=== PATIENT | male | born 1930 | race Caucasian/White ===

== ENCOUNTER 2017-01-04 09:59 | Inpatient (IN) ==
[2017-01-04] MEDS ORDERED: 0.9 % SODIUM CHLORIDE 1,000 ML IV ONE ×2 (10:04→11:55)
--- NOTE | 2017-01-04 10:06 | Emergency Department Note ---
SOB HPI - General Chief Complaint: Shortness of Breath/Dyspnea Stated Complaint: possible aspiration Time Seen by Provider: 01/04/17 10:03 Mode of arrival: wheelchair - History of Present Illness This patient lives at [facility] and has had previous strokes. However he is baseline has been a level of responsiveness and talking in being able to go out to lunch with family. Her last several days however he has become less responsive. Did have UTI last week and has been treated with Macrobid. Family got back from [place] and found him to be much worse than previously. He does have a DNR and is essentially comfort care with permission for IV fluid antibiotics. Also permission for her testing to make diagnoses. MD Complaint: shortness of breath Onset (ago): day(s) Severity: mild Consistency/Duration: constant Improves with: oxygen, bronchodilators Worsens with: lying flat Known history of: aspiration pneumonia - Related Data Home Medications Medication Instructions Recorded Confirmed Allopurinol [Zyloprim] 300 mg PO BID 03/16/15 01/28/16 Pravastatin [Pravachol] 80 mg PO HS 03/16/15 01/28/16 Vitamin B Complex w/Folic Acid PO 06/10/15 01/28/16 cholecalciferol (vitamin D3) 5,000 5,000 unit PO QDAY cap 06/10/15 01/28/16 unit capsule acetaminophen 325 mg tablet 325 mg PO Q4H PRN tab 01/28/16 01/28/16 artificial tears OPHTHALMIC 01/28/16 01/28/16 multivitamin with minerals capsule 1 tab-cap PO QDAY cap 01/28/16 01/28/16 Previous Rx's Medication Instructions Recorded wheelchair - lightweight, manual #1 each 03/21/15 allopurinol 300 mg tablet 300 mg PO BID #60 tab 11/01/15 carbidopa 25 mg-levodopa 100 mg 1 tab PO Q8H #90 tab 11/01/15 tablet clopidogrel 75 mg tablet 75 mg PO QDAY #30 tab 11/01/15 fenofibrate 54 mg tablet 54 mg PO QDAY #30 tab 11/01/15 galantamine ER 16 mg 24 hr 16 mg PO DAILY #30 cap 11/01/15 capsule,extended release insulin glargine 100 unit/mL (3 20 unit SUB-Q DAILY #15 ml 04/22/16 mL) subcutaneous pen pantoprazole 40 mg tablet,delayed 40 mg PO QDAY #30 tab 11/01/15 release prednisone 5 mg tablet 5 mg PO QAM #30 tab 11/01/15 venlafaxine ER 150 mg 150 mg PO DAILY #30 tab 11/01/15 tablet,extended release 24 hr blood sugar diagnostic strips See Dose Instructions .ROUTE 11/05/15 .MEDSUPPLY #100 each ketoconazole 2 % topical cream 1 applic TOPICAL BID PRN #60 g 01/28/16 pravastatin 80 mg tablet 80 mg PO HS #30 tab 01/28/16 amoxicillin 875 mg-potassium 1 tab PO BID #20 tab 02/04/16 clavulanate 125 mg tablet BD Pen needle 31G x 09/24 #150 each 09/15/16 insulin aspart 100 unit/mL See Label Instructions SUB-Q 10/20/16 subcutaneous solution .COMPLEX #15 ml tiotropium bromide 18 mcg capsule 18 mcg INHALATION .COMPLEX #30 puff 11/03/16 with inhalation device amlodipine 2.5 mg tablet 2.5 mg PO QDAY #30 tab 12/08/16 Allergies Allergy/AdvReac Type Severity Reaction Status Date / Time ciprofloxacin [From CIPRO] Allergy Unknown UNKNOWN Verified 01/28/16 15:52 lisinopril [From PRINIVIL] Allergy Unknown COUGH Verified 01/28/16 15:52 colchicine [COLCHICINE] AdvReac Mild NAUSEA Verified 01/28/16 15:52 Review of Systems Limitations: ROS unobtainable due to patients medical condition Past Medical History - Past Medical History [facility] Narrative: Medical History (Last Updated 11/26/16 @ 14:21 by [employer] [place]) Abrasion of occiput (Acute) Diabetes (Acute) Bronchitis (Acute) Pancreatic mass (Acute) Rosacea keratitis (Chronic) Visual field defect (Chronic) Visual disturbance (Chronic) Urinary urgency (Chronic) Urinary frequency (Chronic) Bladder trabeculation (Chronic) Sleep apnea (Chronic) Pterygium (Chronic) Pseudophakia (Chronic) Pneumonia (Chronic 06/13/13) Parkinsonism (Chronic) Nocturia (Chronic) 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 Sjogren's (Chronic) Ischemic heart disease (Chronic) Hypertension, essential (Chronic) Hypercholesterolemia (Chronic) INPH (idiopathic normal pressure hydrocephalus) (Chronic) Gout (Chronic) DMII (diabetes mellitus, type 2) (Chronic) Dermatitis (Chronic) Depressive disorder (Chronic) DDD (degenerative disc disease) (Chronic) DVT (deep venous thrombosis) (Chronic) CAD (coronary artery disease) (Chronic) COPD (chronic obstructive pulmonary disease) (Chronic) Cataract (Chronic 02/11/12) Benign prostatic hypertrophy with lower urinary tract symptoms (LUTS) (Chronic) Gresham's cyst (Chronic) Atrial fibrillation (Chronic) UTI (urinary tract infection) (Acute) Past Surgical History (Last Updated 11/26/16 @ 14:21 by [employer] [place]) Hx of tonsillectomy (Chronic) Status post surgery (Chronic 08/29/13) H/O ventricular shunt (Chronic) H/O left knee surgery (Chronic) Hx of cataract surgery (Chronic) S/P CABG x 4 (Chronic) H/O angioplasty (Chronic) Family History Father Malignant neoplasm of prostate Medical history: Reports: arthritis (prostate problems, Parkinson's, gout), atrial fibrillation, COPD, coronary artery disease, DVT, dementia, diabetes, hyperlipidemia, hypertension Surgical history ED: Reports: angioplasty/stent, cataract, coronary bypass (CABG ), other (tonsils, ventricular shunt) - Social History Alcohol use: Reports: None Drug use: Reports: none Physical Exam - General Limitations: altered mental status General appearance: alert, in no apparent distress - Head Head exam: atraumatic, normocephalic - Eye Eye exam: Present: normal appearance - ENT ENT exam: mucous membranes dry - Neck Neck exam: Present: normal inspection - Chest Chest inspection: Present: normal inspection - Respiratory Respiratory exam: Present: normal lung sounds bilaterally - Cardiovascular Cardiovascular exam: Present: regular rate, normal rhythm, normal heart sounds - Abdominal Exam Abdominal exam: Present: soft. Absent: distention, tenderness - Skin Skin exam: Present: warm, dry, intact Course Vital Signs Temperature 98.1 F 01/04/17 09:59 Pulse Rate 125 H 01/04/17 09:59 Respiratory Rate 38 H 01/04/17 09:59 Pulse Oximetry (%) 94 01/04/17 09:59 Temperature 98.1 F 01/04/17 09:59 Pulse Rate 103 H 01/04/17 11:56 Respiratory Rate 27 H 01/04/17 11:56 Blood Pressure 141/91 01/04/17 11:56 Pulse Oximetry (%) 98 01/04/17 11:56 Shortness of Breath/Dyspnea - [facility] Narrative Medical decision making narrative: This patient is worrisome for sepsis but source is not obvious. Chest x-ray was read as normal and urine does not look very remarkable this week although he had a enterococcus infection in the urine last week and was treated with Macrobid for which it was sensitive. CT scan does show some increased hydrocephalus with questionable [employer] shunt function. I discussed the case with the neurosurgeon Dr. Johnston who recommends treatment of sepsis before any attempt to revise his shunt. He will be admitted to the hospital by Dr. Art our hospitalist. - Lab Data Lab results reviewed: Yes I reviewed the patient's lab results. Result diagrams: 01/04/17 10:23 01/04/17 10:23 Lab Results 01/04/17 01/04/17 01/04/17 Range/Units 10:04 10:23 10:23 WBC 22.6 H (4.5-11.0) K/mcL RBC 5.00 (4.50-5.90) M/mcL Hgb 15.2 (13.5-16.5) g/dL Hct 47.4 (41.0-55.0) % MCV 94.7 (80.0-100.0) fL MCH 30.4 (26.0-34.0) pg MCHC 32.1 (31.0-36.0) g/dL RDW 16.4 H (11.5-14.5) % Plt Count 274 (140-440) K/mcL MPV 10.9 H (7.4-10.4) fL Gran % 85.6 H (38.0-78.0) % Lymph % (Auto) 6.6 L (15.5-49.0) % Piute % (Auto) 4.8 (1.0-12.0) % Eos % (Auto) 3.0 (0.0-7.0) % Baso % (Auto) 0 (0.0-2.0) % Gran # 19.3 H (1.8-8.0) K/mcL Lymph # (Auto) 1.5 (1.5-4.8) K/mcL Piute # (Auto) 1.1 H (0.1-0.9) K/mcL Eos # (Auto) 0.7 (0.0-0.7) K/mcL Baso # (Auto) 0 (0.0-0.3) K/mcL VBG Lactic Acid 5.2 H* (0.5-2.2) mmol/L Sodium 159 H (133-145) mmol/L Potassium 4.1 (3.3-5.1) mmol/L Chloride 114 H (96-108) mmol/L Carbon Dioxide 19 L (22-30) mmol/L Anion Gap 26.0 H (8-16) BUN 92 H (8-23) mg/dl Creatinine 2.9 H (0.7-1.2) mg/dl GFR Calculation 19 Glucose 248 H (70-105) mg/dL Calcium 10.0 (8.6-10.4) mg/dl Total Bilirubin 1.0 (0.0-1.0) mg/dL AST 65 H (0-37) U/l ALT 22 (0-40) U/l Alkaline Phosphatase 161 H (39-117) U/L Total Protein 8.4 (5.9-8.4) gm/dL Albumin 3.5 (3.2-5.2) gm/dL Globulin 4.9 H (2.2-3.7) gm/dL Albumin/Globulin Ratio 0.7 L (1.0-2.3) - Radiology Data Radiology results reviewed: Yes I reviewed the patient's radiology results. Disposition Clinical Impression: Sepsis Disposition: Xfer As Inpt ([facility]) Condition: Fair Referrals: Shar Rosas MD [Primary Care Provider] - Time of Disposition: 12:04
--- NOTE | 2017-01-04 10:38 | XRay Report ---
CLINICAL INFORMATION: Shortness of breath COMPARISON: 08/30/2015 FINDINGS: Mild cardiomegaly is unchanged. Mediastinum and pulmonary vessels are normal. Sternotomy changes noted. GIZZARD PULLER shunt catheter overlies the right neck, chest and right upper outer quadrant of the abdomen - no evidence of shunt breakage. The lungs are clear. No effusions. IMPRESSION: No acute disease - stable Interpreted and Authenticated by: Mariusz Hameed 01/04/17
[2017-01-04 11:02] LABS: Basophils # (Auto) 0 K/mcL (0.0-0.3); Basophils % (Auto) 0 % (0.0-2.0); Eosinophils # (Auto) 0.7 K/mcL (0.0-0.7); Granulocytes % (Auto) 85.6 % (38.0-78.0); Lymphocytes # (Auto) 1.5 K/mcL (1.5-4.8); Lymphocytes % (Auto) 6.6 % (15.5-49.0); Mean Cell Volume 94.7 fL (80.0-100.0); Mean Corpuscular HGB Conc 32.1 g/dL (31.0-36.0); Mean Corpuscular Hemoglobin 30.4 pg (26.0-34.0); Monocytes # (Auto) 1.1 K/mcL (0.1-0.9); Monocytes % (Auto) 4.8 % (1.0-12.0); Platelet Count 274 K/mcL (140-440); Red Cell Distribution Width 16.4 % (11.5-14.5)
--- NOTE | 2017-01-04 11:03 | Cat Scan Report ---
CLINICAL INFORMATION: Decreased level consciousness COMPARISON: None. TECHNIQUE: 2.5 mm helical slices were obtained in the skull base to vertex. Following reconstruction, axial reformatted images were reviewed at bone and parenchymal windows. FINDINGS: The [employer] shunt catheter is in stable position entering the atrium of the right lateral ventricle with the tip in the posterior body right lateral ventricle. The ventricles have increased in size considerably since the 12/10/[address] and are now markedly enlarged. Sulci fissures and cisterns are only moderately enlarged compatible underlying moderate atrophy. There are no extra-axial fluid collections or masses appreciated. Moderate size region of encephalomalacia in the deep white matter of the right parietal lobe, near the shunt tract, has increased in size. There is no intracerebral hemorrhage, mass effect or edema. There is chronic ischemic changes in the deep cerebral white matter. 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 IMPRESSION: 1. Moderate recurrent hydrocephalus. Suspect decreased function of the shunt catheter 2. Moderate underlying atrophy. 3. Patchy chronic ischemic changes in the cerebral white matter. Moderate size region of encephalomalacia in the right parietal lobe, near vertex, has increased from the 2015 comparison study. 4. No intracerebral hemorrhage or other acute finding 5. 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 Please correlate with speculum exam - this may affect conductive hearing Interpreted and Authenticated by: Mariusz Hameed 01/04/17
[2017-01-04 11:16] LABS: ALT/SGPT 22 U/l (0-40); Albumin 3.5 gm/dL (3.2-5.2); Albumin/Globulin Ratio 0.7 (1.0-2.3); Alkaline Phosphatase 161 U/L (39-117); Blood Urea Nitrogen 92 mg/dl (8-23)
[2017-01-04] MEDS ORDERED: LEVOFLOXACIN 500 MG/100 ML BAG IV ONE (11:53)
[2017-01-04] MEDS ORDERED: PIPERACILLIN SODIUM/TAZOBACTAM 3.375 GM in DEXTROSE 5% IN WATER 50 ML IV SCH ×2 (12:00→13:25)
[2017-01-04 12:41] LABS: Appearance,Urine CLOUDY; Bacteria,Urine 0 /hpf (0); Bilirubin,Urine NEG (NEG); Color,Urine YELLOW; Glucose,Urine (UA) NEGATIVE (NEG); Leukocyte Esterase,Urine 25 /uL (NEG); Mucus,Urine MOD /hpf (0); Nitrate,Urine NEG (NEG); Protein,Urine 30 mg/dL (NEG); Specific Gravity,Urine 1.017 (1.000-1.035); Urine Amorphous Crystals MOD /hpf (0); Urine Blood 0.03 mg/dL (<0.03); Urine Hyaline Cast 63 /lpf (0-2); Urine RBC 3 /hpf (0-1); Urine Squamous Epithelial Cell 1 /hpf (0-4); Urine WBC 8 /hpf (0-4)
--- NOTE | 2017-01-04 12:52 | Internal Med History&Physical ---
Medical - H&P: HPI Patient information: Note initiated : 01/04/17 at 12:49 pm Patient: Angel Lal 86 y/o M admitted on for possible aspiration. History of present illness: Mr. Lal is a 86 year old Man brought to the emergency room by his family for declining in level of responsiveness. the patient is awake, but is nonverbal and therefore unable to answer questions. He is able to follow some simple commands, such as leaning forwardor taking a deep breath. the history is mostly supplied by the patient's 3 children, one of whom is his POA. They report that the patient at baseline has dementia and is very forgetful. However he can normally walk and talk, and they often will take him out to lunch where he will order food, and often talk about eventsfrom long ago. His POA went on vacation last week, and when he returned home about 6 days ago, his father had suddenly declined. He noted he was much less responsive and mostly nonverbal. The staff at his nursing hometold him they had sent him to see his doctor, and that the patient was diagnosed with a UTI, which was treated with Macrobid. The staff thought he was getting a little better, though mental status was waxing and waning of it. His family feels that he's had significantly decreased oral intake over the last week. They say at baseline, his memory is very unreliable. However, none of his caregiversfeel that he has had fever or chills. He has not reported headaches, sore throat or cough chest pain or shortness of breath, abdominal pain. To their knowledge, he has not had nausea or vomiting, diarrhea or constipation, or dysuria. eR evaluation today, shows probable sepsis, with markedly leukocytosis, hypernatremia, acute renal failure, elevated lactic acid and pro-calcitonin, as well as his mental status changes. the patient has a DNR CODE STATUS, but his family would like most noninvasive measures attempted to see if he will turn around. They are agreeable to IV antibiotics and fluids, but not to chest compressions or intubation. medical History Abrasion of occiput (Acute) Bronchitis (Acute) Diabetes (Acute) Pancreatic mass (Acute) UTI (urinary tract infection) (Acute) Atrial fibrillation (Chronic) Gresham's cyst (Chronic) Left knee- recorded 07/10/07 Benign prostatic hypertrophy with lower urinary tract symptoms (LUTS) (Chronic) Bladder trabeculation (Chronic) CAD (coronary artery disease) (Chronic) COPD (chronic obstructive pulmonary disease) (Chronic) Cataract (Chronic 02/11/12) DDD (degenerative disc disease) (Chronic) DMII (diabetes mellitus, type 2) (Chronic) fixed dose of insulin ac and BID lantus, ongoing monitoring. Today 6.1% Hba1c. 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) 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 Sjogren's (Chronic) Nocturia (Chronic) Parkinsonism (Chronic) continue physical therapy for strength and balance training, gait assistance start speech therapy for swallowing evaluation stay off of repiridone and continue the same sinemet doses Pneumonia (Chronic 06/13/13) Pseudophakia (Chronic) Pterygium (Chronic) Rosacea keratitis (Chronic) Sleep apnea (Chronic) Urinary frequency (Chronic) Urinary urgency (Chronic) Visual disturbance (Chronic) Visual field defect (Chronic) Surgical History H/O angioplasty (Chronic) 1989 ACBP 1996, 2003 H/O left knee surgery (Chronic) Gresham cyst Left knee. Also cartilage and ligament repair, L knee. H/O ventricular shunt (Chronic) ventricular shunt for normal pressure hydrocephalus Hx of cataract surgery (Chronic) 2003 Hx of tonsillectomy (Chronic) Cartilage and ligament repair S/P CABG x 4 (Chronic) Status post surgery (Chronic 08/29/13) [employer] Therapy medications: (recently treated with Macrobid) venlafaxine ER 150 mg daily Spiriva inhaler 1 inhalation daily prednisone 5 mg daily pravastatin 40 mg daily protonix 40 mg daily multivitamin with minerals qd Lantus 20 units daily at 9 AM NovoLog insulin, 20 unitswith breakfast and lunch, 35 units with dinner, and sliding scale for blood glucose is over 250 Galantamine ER 16 mg 16 mg by mouth daily Fenofibrate 54 mg daily [id number] mg aily vitamin D 5000 units daily Sinemet [id number] 1 by mouth every 8 hours Tylenol 325 mg every 4 hours when necessary artificial tears when necessary calcium/magnesium/zinc supplement 1 daily ketoconazole 2% cream apply to rash twice a day when necessary Seroquel 25 mg every 6 hours when necessary agitation B complex 1 daily Allergies/Adverse Reactions ciprofloxacin [From CIPRO] Allergy (Unknown, Verified 01/28/16 15:52) UNKNOWN lisinopril [From PRINIVIL] Allergy (Unknown, Verified 01/28/16 15:52) COUGH colchicine [COLCHICINE] Adverse Reaction (Mild, Verified 01/28/16 15:52) NAUSEA Family History mother at age 102, of unknown causes. Father of prostate cancer. A brother of a heart attack. Social History the patient was a previous smoker, but quit approximately 40 years ago. His family says he used to drink fairly heavily, but quit around 4 years ago. He does not use drugs. He is a . He lives at [facility]. He does have children that live in the area. Medical - H&P: Meds Home Medications Medication Instructions Recorded Confirmed Type Pravastatin [Pravachol] 80 mg PO HS 03/16/15 01/28/16 History wheelchair - lightweight, manual #1 each 03/21/15 01/28/16 Rx Vitamin B Complex w/Folic Acid PO 06/10/15 01/28/16 History cholecalciferol (vitamin D3) 5,000 5,000 unit PO QDAY cap 06/10/15 01/28/16 History unit capsule carbidopa 25 mg-levodopa 100 mg 1 tab PO Q8H #90 tab 11/01/15 01/28/16 Rx tablet clopidogrel 75 mg tablet 75 mg PO QDAY #30 tab 11/01/15 01/28/16 Rx fenofibrate 54 mg tablet 54 mg PO QDAY #30 tab 11/01/15 01/28/16 Rx galantamine ER 16 mg 24 hr 16 mg PO DAILY #30 cap 11/01/15 01/28/16 Rx capsule,extended release insulin glargine 100 unit/mL (3 20 unit SUB-Q DAILY #15 ml 11/01/15 01/28/16 Rx mL) subcutaneous pen pantoprazole 40 mg tablet,delayed 40 mg PO QDAY #30 tab 11/01/15 01/28/16 Rx release prednisone 5 mg tablet 5 mg PO QAM #30 tab 11/01/15 01/28/16 Rx venlafaxine ER 150 mg 150 mg PO DAILY #30 tab 11/01/15 01/28/16 Rx tablet,extended release 24 hr blood sugar diagnostic strips See Dose Instructions .ROUTE 11/05/15 01/28/16 Rx .MEDSUPPLY #100 each acetaminophen 325 mg tablet 325 mg PO Q4H PRN tab 01/28/16 01/28/16 History artificial tears OPHTHALMIC 01/28/16 01/28/16 History ketoconazole 2 % topical cream 1 applic TOPICAL BID PRN #60 g 01/28/16 01/28/16 Rx multivitamin with minerals capsule 1 tab-cap PO QDAY cap 01/28/16 01/28/16 History pravastatin 80 mg tablet 80 mg PO HS #30 tab 01/28/16 01/28/16 Rx BD Pen needle 31G x 09/24 #150 each 09/15/16 Rx insulin aspart 100 unit/mL See Label Instructions SUB-Q 10/20/16 Rx subcutaneous solution .COMPLEX #15 ml tiotropium bromide 18 mcg capsule 18 mcg INHALATION .COMPLEX #30 puff 11/03/16 Rx with inhalation device Allergies Allergy/AdvReac Type Severity Reaction Status Date / Time ciprofloxacin [From CIPRO] Allergy Unknown UNKNOWN Verified 01/28/16 15:52 lisinopril [From PRINIVIL] Allergy Unknown COUGH Verified 01/28/16 15:52 colchicine [COLCHICINE] AdvReac Mild NAUSEA Verified 01/28/16 15:52 Medical - H&P: Exam - Constitutional Vitals: Temp Pulse Resp BP Pulse Ox 98.1 F 103 H 27 H 141/91 98 01/04/17 09:59 01/04/17 11:56 01/04/17 11:56 01/04/17 11:56 01/04/17 11:56 on exam, this is a well-developed well-nourished elderly man who is lying in bed. He has severe psychomotor retardation and consistently holds the left hand up in the air, and seems unable to put it down. He mainly stares straight forward but with encouragement will turn his head to look at me. head: Normocephalic, atraumatic. Eyes: Pupils are equal, round, reactive. Conjunctiva appeared normal and anicteric. He does not cooperate with EOM exam, but these are grossly normal. ears: TMs and canals are clear. Pharynx: Is not well seen. Tongue and mucosa are markedly dry. Neck: Appears supple, as he is able to turn his head, and move it about, without apparent discomfort. There is no obvious lymphadenopathy, JVD, thyromegaly, bruits. Cardiac exam: Shows regular rate and rhythm, with normal S1 and S2, although S2 sounds split. No murmurs, rubs, gallops are noted. lungs: Exam was suboptimal, but I do not hear obvious rales, rhonchi, wheezes. There is no accessory muscle use. Abdomen: Is soft and appears nontender. Bowel sounds are active. Extremities: Show trace edema, but no cyanosis or clubbing. Skin exam: Does show a petechial rash involving his feet and distal legs. neurologic: The patient is awake, but nonverbal. He is able to follow a few simple commands, but for the most partjust stares straight ahead. He has extreme rigidity, and marked cogwheeling of the left upper extremity. cranial nerves are grossly intact. Cerebellar and sensory exams could not be easily tested. Deep tendon reflexes: I had difficulty obtaining any reflexes, although toes appear downgoing to plantar stimulation. Medical - H&P: Reslt - Labs CBC & Chem 7: 01/04/17 10:23 01/04/17 10:23 Labs: Short CBC 01/04/17 Range/Units 10:23 WBC 22.6 H (4.5-11.0) K/mcL Hgb 15.2 (13.5-16.5) g/dL Hct 47.4 (41.0-55.0) % Plt Count 274 (140-440) K/mcL BMP 01/04/17 10:23 Sodium 159 H Potassium 4.1 Chloride 114 H Carbon Dioxide 19 L BUN 92 H Creatinine 2.9 H Glucose 248 H Calcium 10.0 Liver Function 01/04/17 Range/Units 10:23 Total Bilirubin 1.0 (0.0-1.0) mg/dL AST 65 H (0-37) U/l ALT 22 (0-40) U/l Alkaline Phosphatase 161 H (39-117) U/L Albumin 3.5 (3.2-5.2) gm/dL Urine 01/04/17 Range/Units 12:13 Urine Color Yellow Urine Appearance Cloudy Urine pH 5.0 (5.0-9.0) Ur Specific [place] 1.017 (1.000-1.035) Urine Protein 30 A (NEG) mg/dL Urine Glucose (UA) Negative (NEG) mg/dL January 04: CBC differential: Absolute neutrophil count is elevated at 19,000, monocyte count high at 1100. RDW is elevated at 16 next Lactic acid elevated at 5.2 Pro-calcitonin elevated at 3.43 urinalysis shows 30 mg of protein, 5 ketones, 2.0 bilirubin 25 leukocyte esterase, 8 white blood cells, 63 hyalin casts, moderate crystals Head CT of the brain: Moderate recurrent hydrocephalus, with possible shunt obstruction. Chronic ischemic changes. 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 Chest x-ray:Shows mild cardiomegaly sternotomy changes. DIGITAL ARCHIVIST shunt overlies the right neck. No obvious infiltrates. Medical - H&P: A/P (1) Sepsis Current visit: Yes Status: Acute (2) UTI (urinary tract infection) Current visit: Yes Status: Acute (3) Dehydration with hypernatremia Current visit: Yes Status: Acute (4) Acute renal failure (ARF) Current visit: Yes Status: Acute (5) Parkinson disease Current visit: Yes Status: Chronic - Narrative A/P Narrative: #1. Infectious disease.sepsis. This patient presents with signs of sepsis, including altered mental status, leukocytosis, acute renal failure, elevated lactic acid and pro-calcitonin, tachycardia tachypnea. Underlying infectious etiology is not certain. Urinalysis is abnormal but he was just treated for a urinary tract infection with Macrobid, one week ago. I suspect an underlying early pneumonia, that has not shown up on x-ray yet because of dehydration. -admit for IV fluids, IV Zosyn .-blood and urine cultures pending. Obtain sputum for culture, if possible. -Monitored bed. -vasopressors are not currently being required. We would need to verify with family if these are needed, if that is acceptable, given his DNR status. #2.renal. -patient presents with acute renal failure, which looks consistent with severe dehydration. -start IV fluids, and monitor renal function. I reviewed with his family, that this may improve, and it may not. I am sure they would not accept dialysis or other aggressive measures. -patient has severe hypernatremia, which is also likely due to dehydration. monitor as we treat with IV fluids. 33. Neurologic. this patient appears to have an exacerbation of his Parkinson's disease. Unfortunately he cannot take his usual oral Parkinson's meds, but these will be resumed as soon as he is able. -CT scan also suggests worsening of his hydrocephalus, which may indicate a malfunctioning DIGITAL ARCHIVIST shunt. If he recovers to some degree, he could be referred back to neurosurgery, to address this. -history of dementia, and possible depression. Resume Effexor when he is able. resume Seroquel as needed, or useIM Haldol if needed. Nurses are now reporting that he is pulling at his lines, and we will try hand mitts first. -speech therapy evaluation for suspected dysphagia per his family. #4.CODE STATUS: DNR. #5. DVT prophylaxis: Subcutaneous heparin. #6. Cardiac. -History of atrial fibrillation. -History of coronary disease. status post 4 vessel bypass. resume Plavix and pravastatin when able to take by mouth. -History of hypertension. 37. Pulmonary. History of COPD. Use albuterol nebs and oxygen, when necessary. add scheduled DuoNeb's. resume prednisone when able. -Reported history of sleep apnea. #8. Endocrine. -Type 2 diabetes. Cover with sliding scale insulin, while oral intake is poor. nutrition evaluation. #9. GI. -IV Protonix for history of GERD so far, this visit has taken approximately 70 minutes, to review the patient's case with the ER [facility], review his old records, review current test results examined the patient, get a history from his family and review plan of care.
[2017-01-04] MEDS ORDERED: DOCUSATE SODIUM 100 MG CAPSULE PO PRN (13:25)
[2017-01-04] MEDS ORDERED: ACETAMINOPHEN 325 MG TABLET PO PRN (13:25)
[2017-01-04] MEDS ORDERED: DEXTROSE 50% 50 ML VIAL IV PRN (13:25)
[2017-01-04] MEDS ORDERED: ONDANSETRON 4 MG/2 ML VIAL IV PRN (13:25)
[2017-01-04] MEDS ORDERED: NALOXONE HCL 0.4 MG/ML VIAL IV PRN (13:25)
[2017-01-04] MEDS ORDERED: ALBUTEROL SULFATE 2.5 MG/3 ML NEBULIZER NEB PRN (13:25)
[2017-01-04] MEDS ORDERED: MAGNESIUM HYDROXIDE 30 ML ORAL.SUSP PO PRN (13:25)
[2017-01-04] MEDS: IPRATROPIUM/ALBUTEROL 3 ML AMPUL.NEB NEB SCH ×2 (14:09→19:13)
[2017-01-04] MEDS: POTASSIUM CHLORIDE 10 MEQ in 0.45 % SODIUM CHLORIDE 1,000 ML IV SCH ×2 (15:12→21:01)
[2017-01-04 15:23] LABS: Hemoglobin A1C 8.1 % HGB (4.0-6.0)
[2017-01-04] MEDS: INSULIN LISPRO 1 UNIT/0.01 ML UNIT SQ SCH ×2 (17:31→20:30)
[2017-01-04 19:13] LABS: Blood Urea Nitrogen 90 mg/dl (8-23)
[2017-01-04] MEDS: PIPERACILLIN SODIUM/TAZOBACTAM 3.375 GM in DEXTROSE 5% IN WATER 50 ML IV SCH (19:23)
[2017-01-04] MEDS: HEPARIN 5,000 UNIT/ML VIAL SQ SCH (20:34)
[2017-01-05] MEDS: IPRATROPIUM/ALBUTEROL 3 ML AMPUL.NEB NEB SCH ×4 (02:12→18:58)
[2017-01-05] MEDS: PIPERACILLIN SODIUM/TAZOBACTAM 3.375 GM in DEXTROSE 5% IN WATER 50 ML IV SCH ×3 (02:12→12:50)
[2017-01-05] MEDS: POTASSIUM CHLORIDE 10 MEQ in 0.45 % SODIUM CHLORIDE 1,000 ML IV SCH ×3 (03:37→17:16)
[2017-01-05 06:03] LABS: Basophils # (Auto) 0.1 K/mcL (0.0-0.3); Basophils % (Auto) 0.3 % (0.0-2.0); Eosinophils # (Auto) 0.9 K/mcL (0.0-0.7); Eosinophils % (Auto) 4.9 % (0.0-7.0); Granulocytes % (Auto) 83.9 % (38.0-78.0); Lymphocytes # (Auto) 1.2 K/mcL (1.5-4.8); Lymphocytes % (Auto) 6.8 % (15.5-49.0); Mean Cell Volume 95.1 fL (80.0-100.0); Mean Corpuscular Hemoglobin 30.5 pg (26.0-34.0); Monocytes # (Auto) 0.7 K/mcL (0.1-0.9); Monocytes % (Auto) 4.1 % (1.0-12.0); Platelet Count 212 K/mcL (140-440); RBC 3.78 M/mcL (4.50-5.90); Red Cell Distribution Width 16.3 % (11.5-14.5)
[2017-01-05] MEDS: PANTOPRAZOLE 40 MG VIAL IV SCH (07:18)
[2017-01-05] MEDS: INSULIN LISPRO 1 UNIT/0.01 ML UNIT SQ SCH ×4 (07:42→21:02)
[2017-01-05 07:57] LABS: ALT/SGPT 27 U/l (0-40); Albumin 2.5 gm/dL (3.2-5.2); Albumin/Globulin Ratio 0.7 (1.0-2.3); Alkaline Phosphatase 110 U/L (39-117); Bilirubin,Direct 0.2 mg/dL (0.0-0.3); Blood Urea Nitrogen 81 mg/dl (8-23); Gamma Glutamyl Transpeptidase 150 U/L (8-61); Magnesium 2.7 mg/dL (1.6-2.5); Uric Acid 3.8 mg/dL (2.5-8.0)
[2017-01-05] MEDS: HEPARIN 5,000 UNIT/ML VIAL SQ SCH ×2 (08:39→20:54)
--- NOTE | 2017-01-05 08:39 | XRay Report ---
CLINICAL INFORMATION: Sepsis COMPARISON: 01/04/2017 FINDINGS: Sternotomy changes again noted. The heart is mildly enlarged - slightly increased. Mediastinum unremarkable. Pulmonary vessels are mildly distended. A small infiltrate has developed in the right infrahilar region. Small bilateral pleural effusions appreciated. PIPE FITTER AMMONIA shunt catheter overlying the right neck, chest and upper outer quadrant of the abdomen is intact. IMPRESSION: Small infiltrate in right infrahilar region - new. Borderline CHF or volume overload Interpreted and Authenticated by: Mariusz Hameed 01/05/17
--- NOTE | 2017-01-05 10:20 | Internal Med Progress Note ---
Medical - PN: Subj Patient information: Note initiated : 01/05/17 at 10:20 am Patient: Angel Lal 86 y/o M admitted on 01/04/17 for possible aspiration. Interval history: January 04, 2017: History of present illness: Mr. Lal is a 86 year old Man brought to the emergency room by his family for declining in level of responsiveness. the patient is awake, but is nonverbal and therefore unable to answer questions. He is able to follow some simple commands, such as leaning forwardor taking a deep breath. the history is mostly supplied by the patient's 3 children, one of whom is his POA. They report that the patient at baseline has dementia and is very forgetful. However he can normally walk and talk, and they often will take him out to lunch where he will order food, and often talk about eventsfrom long ago. His POA went on vacation last week, and when he returned home about 6 days ago, his father had suddenly declined. He noted he was much less responsive and mostly nonverbal. The staff at his nursing hometold him they had sent him to see his doctor, and that the patient was diagnosed with a UTI, which was treated with Macrobid. The staff thought he was getting a little better, though mental status was waxing and waning of it. His family feels that he's had significantly decreased oral intake over the last week. They say at baseline, his memory is very unreliable. However, none of his caregiversfeel that he has had fever or chills. He has not reported headaches, sore throat or cough chest pain or shortness of breath, abdominal pain. To their knowledge, he has not had nausea or vomiting, diarrhea or constipation, or dysuria. eR evaluation today, shows probable sepsis, with markedly leukocytosis, hypernatremia, acute renal failure, elevated lactic acid and pro-calcitonin, as well as his mental status changes. the patient has a DNR CODE STATUS, but his family would like most noninvasive measures attempted to see if he will turn around. They are agreeable to IV antibiotics and fluids, but not to chest compressions or intubation. January 05: Today, the patient seems a little bit more responsive. He is tracking better with his eyes. He seems to be attempting to answer questions, but cannot quite form the words. He still has significant muscle rigidity. He is not able to participate in a history. Speech therapy did evaluate him today, and apparently he was able to swallow some things, so has been started on a dysphagia diet. He had a reasonably good night, and vital signs have been fairly stable. - Constitutional Vitals: Vital Signs Temp Pulse Resp BP Pulse Ox 97.8 F 81 28 H 128/67 93 01/05/17 00:02 01/05/17 07:59 01/05/17 07:59 01/05/17 04:02 01/05/17 07:59 Period Temp Pulse Resp BP Sys/Mckeon Pulse Ox Last 24 Hr 97.6 F-98.2 F 81-103 18-28 127-151/54-85 92-99 Intake and Output 01/04/17 01/05/17 01/05/17 21:59 05:59 13:59 Intake Total 923 / 923 990 / 990 100 / 100 Output Total 250 / 250 750 / 750 Balance 673 / 673 240 / 240 100 / 100 Weight 200 lb Temperature at 4 PM is 99.0. Respiratory rate 24. O2 saturation is 98% on 1 L Intake & Output: Intake & Output 01/04/17 01/05/17 01/05/17 21:59 05:59 13:59 Intake Total 923 / 923 990 / 990 100 / 100 Output Total 250 / 250 750 / 750 Balance 673 / 673 240 / 240 100 / 100 Weight 200 lb Intake: IV 923 / 923 990 / 990 100 / 100 Zosyn 3.375 gm In 50 / 50 100 / 100 Dextrose 5% in Water 50 ml @ 100 mls/hr IV Q6H [facility] Rx#:[id number] Potassium Chloride 10 Meq 873 / 873 990 / 990 In Sodium Chloride 0.45% 1,000 ml @ 150 mls/hr IV .Q6H42M [facility] Rx#: [id number] Output: Urine Catheter Amount 250 / 250 750 / 750 On exam, he is awake and seems alert. He is able to follow some simple commands. Neck is supple without obvious JVD. Cardiac exam shows regular rate and rhythm. Lungs: Have a few scattered crackles, but otherwise appear clear. Abdomen: Appears soft and nontender. Bowel sounds are active. Extremities: Show no significant edema. He continues to have a petechial rash below his knees Neurologic exam: The patient continues to be nonverbal, and mostly stares straight ahead. He has severe psychomotor retardation. He is able to follow some commands, such as deep breathing for lung exam. Medical - PN: Obj Da - Labs CBC & Chem 7: 01/05/17 03:38 01/05/17 03:38 Labs: Abnormal Lab Results 01/05/17 01/05/17 01/04/17 03:38 03:38 18:01 WBC 18.1 H RBC 3.78 L Hgb 11.5 L Hct 36.0 L RDW 16.3 H MPV 11.0 H Gran % 83.9 H Lymph % (Auto) 6.8 L Gran # 15.2 H Lymph # (Auto) 1.2 L Eos # (Auto) 0.9 H Sodium 159 H 157 H Chloride 125 H 122 H Carbon Dioxide 21 L 20 L BUN 81 H 90 H Creatinine 2.3 H 2.4 H Glucose 233 H 359 H Calcium 8.0 L 8.2 L Magnesium 2.7 H GGT 150 H Albumin 2.5 L Albumin/Globulin Ratio 0.7 L Triglycerides 227 H January 05: Chest x-ray: Shows a small infiltrate in the right infrahilar region, which appears new. Pulmonary vessels are mildly distended. There are also small bilateral pleural effusions. Blood cultures are negative so far Urine culture is negative so far MRSA screen is negative January 04: CBC differential: Absolute neutrophil count is elevated at 19,000, monocyte count high at 1100. RDW is elevated at 16 next Lactic acid elevated at 5.2 Pro-calcitonin elevated at 3.43 urinalysis shows 30 mg of protein, 5 ketones, 2.0 bilirubin 25 leukocyte esterase, 8 white blood cells, 63 hyalin casts, moderate crystals Head CT of the brain: Moderate recurrent hydrocephalus, with possible shunt obstruction. Chronic ischemic changes. 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 Chest x-ray:Shows mild cardiomegaly sternotomy changes. TECHNICAL SALES ADVISOR shunt overlies the right neck. No obvious infiltrates. Meds: Medications Acetaminophen (Tylenol) 650 mg PO Q6HP PRN PRN Reason: PAIN/FEVER > 101 Albuterol Sulfate (Ventolin) 2.5 mg NEB Q4HP PRN PRN Reason: Shortness Of Breath Or Wheezing Albuterol/Ipratropium (Duoneb) 3 ml NEB Q6HRT [facility] Last Admin: 01/05/17 07:49 Dose: 3 ml Dextrose (Dextrose 50%) 0 ml IV UD PRN PRN Reason: Hypoglycemia Diagnostic Test (Pha) (Accu-Chek) 1 each FS ACHS [facility] Last Admin: 01/05/17 07:39 Dose: 1 each Docusate Sodium (Colace) 100 mg PO BID PRN PRN Reason: Constipation Heparin Sodium (Porcine) (Heparin) 5,000 unit SQ Q12 [facility] Last Admin: 01/05/17 08:39 Dose: 5,000 unit Piperacillin Sod/Tazobactam (Sod 3.375 gm/ Dextrose) 50 mls @ 100 mls/hr IV Q6H [facility] Last Infusion: 01/05/17 08:40 Dose: Infused Potassium Chloride 10 meq/ (Sodium Chloride) 1,005 mls @ 150 mls/hr IV .Q6H42M [facility] Last Admin: 01/05/17 03:37 Dose: 150 mls/hr Insulin Human Lispro (Humalog) 0 unit SQ [facility] PRN Reason: Protocol Last Admin: 01/05/17 07:42 Dose: 2 unit Magnesium Hydroxide (Milk Of Magnesia) 30 ml PO DAILYP PRN PRN Reason: Constipation Morphine Sulfate (Morphine) 1 mg IV Q1H PRN PRN Reason: Pain Naloxone HCl (Narcan) 0.1 mg IV Q2MIN PRN PRN Reason: Opiate Reversal Ondansetron HCl (Zofran) 4 mg IV Q4HP PRN PRN Reason: Nausea And Vomiting Pantoprazole Sodium (Protonix) 40 mg IV QAMAC [facility] Last Admin: 01/05/17 07:18 Dose: 40 mg Medical - PN: A/P - Time Spent With Patient Total time spent is greater than 50% in coordination of care (as documented) at patient's floor/unit and/or counseling patient: (1) Sepsis Status: Acute Current Visit: Yes (2) UTI (urinary tract infection) Status: Acute Current Visit: Yes (3) Dehydration with hypernatremia Status: Acute Current Visit: Yes (4) Acute renal failure (ARF) Status: Acute Current Visit: Yes (5) Parkinson disease Status: Chronic Current Visit: Yes - Narrative A/P Narrative: #1. Infectious disease.sepsis. This patient presents with signs of sepsis, including altered mental status, leukocytosis, acute renal failure, elevated lactic acid and pro-calcitonin, tachycardia tachypnea. Chest x-ray appears to show a new infiltrate today, so underlying source may be pneumonia. -Continue IV Zosyn, and his leukocytosis is improving with this. .-blood and urine cultures pending. Obtain sputum for culture, if possible. -Monitored bed. -vasopressors are not currently being required. #2.renal. -patient presents with acute renal failure, which looks consistent with severe dehydration. BUN and creatinine are somewhat improved today, but he continues to have fairly severe hypernatremia, and apparent metabolic acidosis. -start IV fluids, and monitor renal function. I reviewed with his family, that this may improve, and it may not. I am sure they would not accept dialysis or other aggressive measures. -patient has severe hypernatremia, which is also likely due to dehydration. monitor as we treat with IV fluids. I will switch his IV fluids over to D5 today, as he probably has a very large free water deficit. #3. Neurologic. this patient appears to have an exacerbation of his Parkinson's disease. Unfortunately was not able to take his usual oral Parkinson's meds, but these will be resumed as soon as he is able. Speech therapy says he is able to swallow a pured diet, so we will try crushing some of his medications. -CT scan also suggests worsening of his hydrocephalus, which may indicate a malfunctioning TECHNICAL SALES ADVISOR shunt. If he recovers to some degree, he could be referred back to neurosurgery, to address this. -history of dementia, and possible depression. Resume Effexor when he is able. resume Seroquel as needed, or use IM Haldol if needed. Nurses are now reporting that he is pulling at his lines, and hand mitts are on. #4.CODE STATUS: DNR. #5. DVT prophylaxis: Subcutaneous heparin. #6. Cardiac. -History of atrial fibrillation. -History of coronary disease. status post 4 vessel bypass. resume Plavix and pravastatin when able to take by mouth. -History of hypertension. 37. Pulmonary. History of COPD. Use albuterol nebs and oxygen, when necessary. add scheduled DuoNeb's. resume prednisone when able. -Reported history of sleep apnea. #8. Endocrine. -Type 2 diabetes. -Low-dose Lantus will be added back today. Since I need to switch his fluids over to D5, he will likely need higher doses of insulin. nutrition evaluation. #9. GI. -IV Protonix for history of GERD This visit took approximately 35 minutes today, to examine the patient, review test results, review plan of care at our team meeting, and write orders. Medical - PN: Qual - VTE Deep Vein Thrombosis/Pulmonary Embolism Present on Admission: No
[2017-01-05] MEDS: PIPERACILLIN SODIUM/TAZOBACTAM 2.25 GM in DEXTROSE 5% IN WATER 50 ML IV SCH ×2 (17:23→23:21)
[2017-01-05] MEDS ORDERED: POLYVINYL ALCOHOL OPHTH DROPS 15ML BOTTLE OU PRN (17:54)
[2017-01-05] MEDS: CARBIDOPA/LEVODOPA 25/100 TABLET PO SCH (20:53)
[2017-01-05] MEDS: ATORVASTATIN 20 MG TABLET PO SCH (20:53)
[2017-01-05] MEDS: VITAMIN D3 5,000 UNIT CAPSULE PO SCH (20:53)
[2017-01-05] MEDS: DEXTROSE 5% IN WATER 1,000 ML IV SCH (20:59)
[2017-01-05] MEDS ORDERED: INSULIN GLARGINE, HUMAN 1 UNIT/0.01 ML SQ SCH (21:00)
[2017-01-05] MEDS: INSULIN GLARGINE, HUMAN 1 UNIT/0.01 ML SQ SCH (21:02)
[2017-01-06] MEDS: IPRATROPIUM/ALBUTEROL 3 ML AMPUL.NEB NEB SCH ×4 (00:53→19:11)
[2017-01-06] MEDS: DEXTROSE 5% IN WATER 1,000 ML IV SCH ×4 (04:35→22:13)
[2017-01-06] MEDS: CARBIDOPA/LEVODOPA 25/100 TABLET PO SCH ×3 (04:56→22:00)
[2017-01-06] MEDS: PIPERACILLIN SODIUM/TAZOBACTAM 2.25 GM in DEXTROSE 5% IN WATER 50 ML IV SCH ×4 (04:56→23:53)
[2017-01-06 05:39] LABS: Basophils # (Auto) 0.1 K/mcL (0.0-0.3); Basophils % (Auto) 0.4 % (0.0-2.0); Eosinophils # (Auto) 0.8 K/mcL (0.0-0.7); Eosinophils % (Auto) 5.3 % (0.0-7.0); Lymphocytes # (Auto) 1.5 K/mcL (1.5-4.8); Mean Cell Volume 94.7 fL (80.0-100.0); Mean Corpuscular HGB Conc 32.5 g/dL (31.0-36.0); Mean Corpuscular Hemoglobin 30.8 pg (26.0-34.0); Monocytes # (Auto) 0.5 K/mcL (0.1-0.9); Monocytes % (Auto) 3.3 % (1.0-12.0); Platelet Count 182 K/mcL (140-440); RBC 3.39 M/mcL (4.50-5.90); Red Cell Distribution Width 16.2 % (11.5-14.5)
[2017-01-06 06:45] LABS: ALT/SGPT 9 U/l (0-40); Albumin 2.4 gm/dL (3.2-5.2); Albumin/Globulin Ratio 0.8 (1.0-2.3); Alkaline Phosphatase 105 U/L (39-117); Bilirubin,Direct 0.3 mg/dL (0.0-0.3); Blood Urea Nitrogen 48 mg/dl (8-23); Gamma Glutamyl Transpeptidase 140 U/L (8-61); Magnesium 2.4 mg/dL (1.6-2.5); Uric Acid 2.3 mg/dL (2.5-8.0)
--- NOTE | 2017-01-06 07:32 | XRay Report ---
CLINICAL INFORMATION: Sepsis COMPARISON: 01/05/2017 FINDINGS: Moderate cardiomegaly is unchanged. Sternotomy again noted. The COMPENSATION ADJUSTER shunt catheter in right neck chest and upper abdomen abdomen is intact. Mediastinum is normal. Pulmonary vessels are within normal limits. Minor airspace disease in both medial bases has progressed. It is more likely atelectasis than infiltrate IMPRESSION: Minor bibasilar airspace disease progressing - more likely atelectasis than infiltrate Stable cardiomegaly - no evidence CHF Interpreted and Authenticated by: Mariusz Hameed 01/06/17
[2017-01-06] MEDS: amLODIPine 5 MG TABLET PO SCH (07:50)
[2017-01-06] MEDS: VITAMIN B COMPLEX 1 CAPSULE PO SCH (07:50)
[2017-01-06] MEDS: CLOPIDOGREL 75 MG TABLET PO SCH (07:50)
[2017-01-06] MEDS: VENLAFAXINE 150 MG CAP.XL.24H PO SCH (07:50)
[2017-01-06] MEDS: PANTOPRAZOLE 40 MG VIAL IV SCH (07:50)
[2017-01-06] MEDS: predniSONE 5 MG TABLET PO SCH (07:51)
[2017-01-06] MEDS: HEPARIN 5,000 UNIT/ML VIAL SQ SCH ×2 (07:52→21:50)
[2017-01-06] MEDS: INSULIN GLARGINE, HUMAN 1 UNIT/0.01 ML SQ SCH ×2 (08:02→21:50)
[2017-01-06] MEDS: INSULIN LISPRO 1 UNIT/0.01 ML UNIT SQ SCH ×4 (08:03→21:50)
[2017-01-06] MEDS ORDERED: INSULIN GLARGINE, HUMAN 1 UNIT/0.01 ML SQ SCH (09:00)
--- NOTE | 2017-01-06 12:12 | Internal Med Progress Note ---
Medical - PN: Subj Patient information: Note initiated : 01/06/17 at 12:12 pm Patient: Angel Lal 86 y/o M admitted on 01/04/17 for Possible Aspiration/ Sepsis, UTI, Dehydration. Interval history: January 04, 2017: History of present illness: Mr. Lal is a 86 year old Man brought to the emergency room by his family for declining in level of responsiveness. the patient is awake, but is nonverbal and therefore unable to answer questions. He is able to follow some simple commands, such as leaning forwardor taking a deep breath. the history is mostly supplied by the patient's 3 children, one of whom is his POA. They report that the patient at baseline has dementia and is very forgetful. However he can normally walk and talk, and they often will take him out to lunch where he will order food, and often talk about eventsfrom long ago. His POA went on vacation last week, and when he returned home about 6 days ago, his father had suddenly declined. He noted he was much less responsive and mostly nonverbal. The staff at his nursing hometold him they had sent him to see his doctor, and that the patient was diagnosed with a UTI, which was treated with Macrobid. The staff thought he was getting a little better, though mental status was waxing and waning of it. His family feels that he's had significantly decreased oral intake over the last week. They say at baseline, his memory is very unreliable. However, none of his caregiversfeel that he has had fever or chills. He has not reported headaches, sore throat or cough chest pain or shortness of breath, abdominal pain. To their knowledge, he has not had nausea or vomiting, diarrhea or constipation, or dysuria. eR evaluation today, shows probable sepsis, with markedly leukocytosis, hypernatremia, acute renal failure, elevated lactic acid and pro-calcitonin, as well as his mental status changes. the patient has a DNR CODE STATUS, but his family would like most noninvasive measures attempted to see if he will turn around. They are agreeable to IV antibiotics and fluids, but not to chest compressions or intubation. January 05: Today, the patient seems a little bit more responsive. He is tracking better with his eyes. He seems to be attempting to answer questions, but cannot quite form the words. He still has significant muscle rigidity. He is not able to participate in a history. Speech therapy did evaluate him today, and apparently he was able to swallow some things, so has been started on a dysphagia diet. He had a reasonably good night, and vital signs have been fairly stable. January 06: Today, the patient is more responsive. He apparently is able to swallow soft foods and thickened liquids, with cueing. His family notes he is trying harder to speak, and they have understood a few words. He is certainly more alert today. He was able to say good morning to me, but was unable to really say any intelligible words after that. He is still able to follow simple commands. He is unable to answer other questions. His family is in the room today, and they have lots of questions. - Constitutional Vitals: Vital Signs Temp Pulse Resp BP Pulse Ox 101.3 F H 98 H 18 147/68 93 01/06/17 07:48 01/06/17 06:59 01/06/17 06:59 01/06/17 04:00 01/06/17 06:59 Period Temp Pulse Resp BP Sys/Mckeon Pulse Ox Last 24 Hr 97.5 F-101.3 F 75-98 16-24 115-147/45-68 93-99 Intake and Output 01/05/17 01/06/17 01/06/17 21:59 05:59 13:59 Intake Total 1006 / 1006 Output Total 1000 / 1000 975 / 975 Balance 7 / 7 1030 / 1030 Weight 184 lb 9.6 oz Intake & Output: Intake & Output 01/05/17 01/06/17 01/06/17 21:59 05:59 13:59 Intake Total 1006 / 1006 Output Total 1000 / 1000 975 / 975 Balance 7 7 1030 / 1030 Weight 184 lb 9.6 oz Intake: IV 1006 / 1006 Dextrose 5% in Water 1, 950 / 950 000 ml @ 125 mls/hr IV . Q8H [facility] Rx#:[id number] Zosyn 2.25 gm In Dextrose 50 / 50 50 / 50 5% in Water 50 ml @ 100 mls/hr IV Q6H [facility] Rx#: [id number] Potassium Chloride 10 Meq 957 / 957 In Sodium Chloride 0.45% 1,000 ml @ 150 mls/hr IV .Q6H42M [facility] Rx#: [id number] Output: Urine Catheter Amount 1000 / 1000 975 / 975 Other: Meal Nourishment/Supplement Percent of Meal Consumed 25% # Bowel Movements 1 # of times incontinent of 1 Bowels Temperature was 101.3 this morning. On exam, the patient is awake and alert, but not mostly nonverbal. He is certainly moving his arms and legs better, and has less psychomotor retardation. Neck is supple without obvious lymphadenopathy. Cardiac exam shows regular rate and rhythm. Lungs are fairly clear to auscultation. Abdomen is soft and nontender. Ankles are a bit puffy, but without significant edema. The petechial rash on his lower extremities is fading. Medical - PN: Obj Da - Labs CBC & Chem 7: 01/06/17 04:30 01/06/17 04:30 Labs: Abnormal Lab Results 01/06/17 01/06/17 01/05/17 04:30 04:30 03:38 WBC 14.9 H RBC 3.39 L Hgb 10.4 L Hct 32.1 L RDW 16.2 H MPV 11.2 H Gran % 81.0 H Lymph % (Auto) 10.0 L Gran # 12.0 H Lymph # (Auto) Eos # (Auto) 0.8 H Sodium 155 H 159 H Chloride 124 H 125 H Carbon Dioxide 21 L 21 L BUN 48 H 81 H Creatinine 1.9 H 2.3 H Glucose 338 H 233 H Uric Acid 2.3 L Calcium 7.7 L 8.0 L Phosphorus 2.6 L Magnesium 2.7 H GGT 140 H 150 H Lactate Dehydrogenase 282 H Total Protein 5.6 L Albumin 2.4 L 2.5 L Albumin/Globulin Ratio 0.8 L 0.7 L Triglycerides 223 H 227 H 01/05/17 01/04/17 03:38 18:01 WBC 18.1 H RBC 3.78 L Hgb 11.5 L Hct 36.0 L RDW 16.3 H MPV 11.0 H Gran % 83.9 H Lymph % (Auto) 6.8 L Gran # 15.2 H Lymph # (Auto) 1.2 L Eos # (Auto) 0.9 H Sodium 157 H Chloride 122 H Carbon Dioxide 20 L BUN 90 H Creatinine 2.4 H Glucose 359 H Uric Acid Calcium 8.2 L Phosphorus Magnesium GGT Lactate Dehydrogenase Total Protein Albumin Albumin/Globulin Ratio Triglycerides January 06: Chest x-ray: Minor bibasilar airspace disease is progressing, atelectasis versus infiltrate. January 05: Chest x-ray: Shows a small infiltrate in the right infrahilar region, which appears new. Pulmonary vessels are mildly distended. There are also small bilateral pleural effusions. Blood cultures are negative so far Urine culture is now growing enterococcus, but only 10-20,000 colonies. Sensitivities are pending.. MRSA screen is negative January 04: CBC differential: Absolute neutrophil count is elevated at 19,000, monocyte count high at 1100. RDW is elevated at 16 next Lactic acid elevated at 5.2 Pro-calcitonin elevated at 3.43 urinalysis shows 30 mg of protein, 5 ketones, 2.0 bilirubin 25 leukocyte esterase, 8 white blood cells, 63 hyalin casts, moderate crystals Head CT of the brain: Moderate recurrent hydrocephalus, with possible shunt obstruction. Chronic ischemic changes. 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 Chest x-ray:Shows mild cardiomegaly sternotomy changes. SOYFREEZE OPERATOR shunt overlies the right neck. No obvious infiltrates. Meds: Medications Acetaminophen (Tylenol) 650 mg PO Q6HP PRN PRN Reason: PAIN/FEVER > 101 Last Admin: 01/06/17 07:48 Dose: 650 mg Albuterol Sulfate (Ventolin) 2.5 mg NEB Q4HP PRN PRN Reason: Shortness Of Breath Or Wheezing Albuterol/Ipratropium (Duoneb) 3 ml NEB Q6HRT [facility] Last Admin: 01/06/17 06:57 Dose: 3 ml Amlodipine Besylate (Norvasc) 2.5 mg PO DAILY [facility] Last Admin: 01/06/17 07:50 Dose: 2.5 mg Artificial Tears (Artificial Tears Ophth Drops) 1 gtt OU Q8HP PRN PRN Reason: Dry Eye(s) Atorvastatin Calcium (Lipitor) 10 mg PO HS [facility] Last Admin: 01/05/17 20:53 Dose: 10 mg Carbidopa/Levodopa (Sinemet 25/100) 1 tab PO Q8H [facility] Last Admin: 01/06/17 04:56 Dose: 1 tab Clopidogrel Bisulfate (Plavix) 75 mg PO QDAY [facility] Last Admin: 01/06/17 07:50 Dose: 75 mg Dextrose (Dextrose 50%) 0 ml IV UD PRN PRN Reason: Hypoglycemia Diagnostic Test (Pha) (Accu-Chek) 1 each FS ACHS [facility] Last Admin: 01/06/17 08:01 Dose: 1 each Docusate Sodium (Colace) 100 mg PO BID PRN PRN Reason: Constipation Heparin Sodium (Porcine) (Heparin) 5,000 unit SQ Q12 [facility] Last Admin: 01/06/17 07:52 Dose: 5,000 unit Piperacillin Sod/Tazobactam (Sod 2.25 gm/ Dextrose) 50 mls @ 100 mls/hr IV Q6H [facility] Last Admin: 01/06/17 04:56 Dose: 100 mls/hr Dextrose (Dextrose 5% In Water) 1,000 mls @ 150 mls/hr IV .Q6H40M [facility] Insulin Glargine (Lantus) 20 unit SQ BID [facility] Insulin Human Lispro (Humalog) 0 unit SQ ACHS [facility] PRN Reason: Protocol Magnesium Hydroxide (Milk Of Magnesia) 30 ml PO DAILYP PRN PRN Reason: Constipation Morphine Sulfate (Morphine) 1 mg IV Q1H PRN PRN Reason: Pain Naloxone HCl (Narcan) 0.1 mg IV Q2MIN PRN PRN Reason: Opiate Reversal Ondansetron HCl (Zofran) 4 mg IV Q4HP PRN PRN Reason: Nausea And Vomiting Pantoprazole [facility] ([facility]ix) [facility] Last Admin: 01/06/17 07:50 Dose: 40 mg Galantamine Hbr [ (Razadyne Er] 16 Mg) 1 dose PO DAILY [facility] Prednisone (Prednisone) 5 mg PO [facility] Last Admin: 01/06/17 07:51 Dose: 5 mg Venlafaxine HCl (Effexor Xr) 150 mg PO DAILY [facility] Last Admin: 01/06/17 07:50 Dose: 150 mg Vitamin B Complex (Vitamin B Complex) 1 cap PO DAILY [facility] Last Admin: 01/06/17 07:50 Dose: 1 cap Vitamin D (Vitamin D3) 5,000 unit PO [facility] Last Admin: 01/05/17 20:53 Dose: 5,000 unit Medical - PN: A/P - Time Spent With Patient Total time spent is greater than 50% in coordination of care (as documented) at patient's floor/unit and/or counseling patient: Greater than 35 minutes (1) Sepsis Status: Acute Current Visit: Yes (2) UTI (urinary tract infection) Status: Acute Current Visit: Yes (3) Dehydration with hypernatremia Status: Acute Current Visit: Yes (4) Acute renal failure (ARF) Status: Acute Current Visit: Yes (5) Parkinson disease Status: Chronic Current Visit: Yes - Narrative A/P Narrative: #1. Infectious disease.sepsis. This patient presents with signs of sepsis, including altered mental status, leukocytosis, acute renal failure, elevated lactic acid and pro-calcitonin, tachycardia tachypnea. Chest x-ray does show basilar infiltrate, and he likely has clinically significant pneumonia. -Continue IV Zosyn, and his leukocytosis is improving with this. .-blood cultures pending. -Urine is growing a few colonies of enterococcus. ID is pending. Obtain sputum for culture, if possible. #2.renal. -patient presents with acute renal failure, which looks consistent with severe dehydration. BUN and creatinine are improved today, but he continues to have fairly severe hypernatremia. Hypernatremia and acidosis appear improved. He is now on D5W fluids, to promote improvement in serum sodium. #3. Neurologic. this patient appears to have an exacerbation of his Parkinson's disease. Motor rigidity is much improved, since they have been able to get some of his Parkinson's meds back into him. He also appears to be tolerating a dysphagia diet. -CT scan also suggests worsening of his hydrocephalus, which may indicate a malfunctioning SOYFREEZE OPERATOR shunt. If he recovers to some degree, he could be referred back to neurosurgery, to address this. -history of dementia, and possible depression. Resume Effexor when he is able. resume Seroquel as needed, or use IM Haldol if needed. #4.CODE STATUS: DNR. #5. DVT prophylaxis: Subcutaneous heparin. #6. Cardiac. -History of atrial fibrillation. -History of coronary disease. status post 4 vessel bypass. resume Plavix and pravastatin when able to take by mouth. -History of hypertension. 37. Pulmonary. History of COPD. Use albuterol nebs and oxygen, when necessary. add scheduled DuoNeb's. resume prednisone when able. -Reported history of sleep apnea. #8. Endocrine. -Type 2 diabetes. Glucoses are running quite high, due to IV fluids with D5. Lantus and sliding scale will be increased. #9. GI. -IV Protonix for history of GERD This visit took approximately 35 minutes today, to examine the patient, review test results, review plan of care at our team meeting ,and again with his family members, and write orders. Medical - PN: Qual - VTE Deep Vein Thrombosis/Pulmonary Embolism Present on Admission: No
[2017-01-06] MEDS: GALANTAMINE HBR 16 MG PO SCH (17:44)
[2017-01-06] MEDS: ATORVASTATIN 20 MG TABLET PO SCH (21:59)
[2017-01-06] MEDS: VITAMIN D3 5,000 UNIT CAPSULE PO SCH (22:00)
[2017-01-07] MEDS: IPRATROPIUM/ALBUTEROL 3 ML AMPUL.NEB NEB SCH ×4 (01:13→19:27)
[2017-01-07] MEDS: DEXTROSE 5% IN WATER 1,000 ML IV SCH ×4 (03:17→23:13)
[2017-01-07] MEDS: CARBIDOPA/LEVODOPA 25/100 TABLET PO SCH ×3 (05:31→21:18)
[2017-01-07] MEDS: PIPERACILLIN SODIUM/TAZOBACTAM 2.25 GM in DEXTROSE 5% IN WATER 50 ML IV SCH ×3 (05:31→17:41)
[2017-01-07 06:20] LABS: Basophils # (Auto) 0 K/mcL (0.0-0.3); Basophils % (Auto) 0.3 % (0.0-2.0); Eosinophils # (Auto) 0.7 K/mcL (0.0-0.7); Eosinophils % (Auto) 4.6 % (0.0-7.0); Lymphocytes # (Auto) 1.6 K/mcL (1.5-4.8); Lymphocytes % (Auto) 11.5 % (15.5-49.0); Mean Cell Volume 95.6 fL (80.0-100.0); Mean Corpuscular HGB Conc 32.7 g/dL (31.0-36.0); Mean Corpuscular Hemoglobin 31.3 pg (26.0-34.0); Monocytes # (Auto) 0.5 K/mcL (0.1-0.9); Monocytes % (Auto) 3.6 % (1.0-12.0); Platelet Count 180 K/mcL (140-440); RBC 3.48 M/mcL (4.50-5.90); Red Cell Distribution Width 16.5 % (11.5-14.5)
[2017-01-07 06:49] LABS: ALT/SGPT 6 U/l (0-40); Albumin 2.5 gm/dL (3.2-5.2); Albumin/Globulin Ratio 0.7 (1.0-2.3); Alkaline Phosphatase 107 U/L (39-117); Bilirubin,Direct < 0.2 mg/dL (0.0-0.3); Blood Urea Nitrogen 28 mg/dl (8-23); Gamma Glutamyl Transpeptidase 149 U/L (8-61); Magnesium 2.2 mg/dL (1.6-2.5); Uric Acid 2.1 mg/dL (2.5-8.0)
[2017-01-07] MEDS: INSULIN GLARGINE, HUMAN 1 UNIT/0.01 ML SQ SCH ×2 (07:17→21:19)
[2017-01-07] MEDS: INSULIN LISPRO 1 UNIT/0.01 ML UNIT SQ SCH ×4 (07:17→21:18)
[2017-01-07] MEDS: PANTOPRAZOLE 40 MG VIAL IV SCH (07:18)
[2017-01-07] MEDS: VENLAFAXINE 150 MG CAP.XL.24H PO SCH (07:59)
[2017-01-07] MEDS: VITAMIN B COMPLEX 1 CAPSULE PO SCH (07:59)
[2017-01-07] MEDS: predniSONE 5 MG TABLET PO SCH (07:59)
[2017-01-07] MEDS: HEPARIN 5,000 UNIT/ML VIAL SQ SCH ×2 (08:00→21:17)
[2017-01-07] MEDS: CLOPIDOGREL 75 MG TABLET PO SCH (08:01)
[2017-01-07] MEDS: amLODIPine 5 MG TABLET PO SCH (08:01)
[2017-01-07] MEDS: GALANTAMINE HBR 16 MG PO SCH (08:01)
--- NOTE | 2017-01-07 10:27 | Internal Med Progress Note ---
Medical - PN: Subj Patient information: Note initiated : 01/07/17 at 10:27 am Service Date, if different from initiated Date: [] Patient: Angel Lal 86 y/o M admitted on 01/04/17 for Possible Aspiration/ Sepsis, UTI, Dehydration. Chief Complaint: [] Interval history: January 04, 2017: History of present illness: Mr. Lal is a 86 year old Man brought to the emergency room by his family for declining in level of responsiveness. the patient is awake, but is nonverbal and therefore unable to answer questions. He is able to follow some simple commands, such as leaning forwardor taking a deep breath. the history is mostly supplied by the patient's 3 children, one of whom is his POA. They report that the patient at baseline has dementia and is very forgetful. However he can normally walk and talk, and they often will take him out to lunch where he will order food, and often talk about eventsfrom long ago. His POA went on vacation last week, and when he returned home about 6 days ago, his father had suddenly declined. He noted he was much less responsive and mostly nonverbal. The staff at his nursing hometold him they had sent him to see his doctor, and that the patient was diagnosed with a UTI, which was treated with Macrobid. The staff thought he was getting a little better, though mental status was waxing and waning of it. His family feels that he's had significantly decreased oral intake over the last week. They say at baseline, his memory is very unreliable. However, none of his caregiversfeel that he has had fever or chills. He has not reported headaches, sore throat or cough chest pain or shortness of breath, abdominal pain. To their knowledge, he has not had nausea or vomiting, diarrhea or constipation, or dysuria. eR evaluation today, shows probable sepsis, with markedly leukocytosis, hypernatremia, acute renal failure, elevated lactic acid and pro-calcitonin, as well as his mental status changes. the patient has a DNR CODE STATUS, but his family would like most noninvasive measures attempted to see if he will turn around. They are agreeable to IV antibiotics and fluids, but not to chest compressions or intubation. January 05: Today, the patient seems a little bit more responsive. He is tracking better with his eyes. He seems to be attempting to answer questions, but cannot quite form the words. He still has significant muscle rigidity. He is not able to participate in a history. Speech therapy did evaluate him today, and apparently he was able to swallow some things, so has been started on a dysphagia diet. He had a reasonably good night, and vital signs have been fairly stable. January 06: Today, the patient is more responsive. He apparently is able to swallow soft foods and thickened liquids, with cueing. His family notes he is trying harder to speak, and they have understood a few words. He is certainly more alert today. He was able to say good morning to me, but was unable to really say any intelligible words after that. He is still able to follow simple commands. He is unable to answer other questions. His family is in the room today, and they have lots of questions. January 07: Today, the patient is again improved over yesterday. He is able to speak a little bit, and states that he feels "okay" today. He is using his hands and arms more, and is holding a cup of juice when I enter the room. He still requires quite a bit of assistance to eat. Otherwise, he appears to deny any pain, chest pain or shortness of breath, stomach symptoms. -Sodium is much improved today, as is BUN and creatinine. Leukocytosis also continues to improve. - Constitutional Vitals: Vital Signs Temp Pulse Resp BP Pulse Ox 90.2 F L 74 22 145/76 92 01/07/17 07:27 01/07/17 07:12 01/07/17 07:27 01/07/17 07:27 01/07/17 07:27 Period Temp Pulse Resp BP Sys/Mckeon Pulse Ox Last 24 Hr 90.2 F-98.2 F 65-98 16-22 122-145/54-76 92-100 Intake and Output 01/06/17 01/07/17 01/07/17 21:59 05:59 13:59 Intake Total 320 / 320 1050 / 1050 200 / 200 Output Total 1300 / 1300 900 / 900 Balance -980 / -980 150 / 150 200 / 200 Weight 185 lb 9.6 oz Temperature this evening is 99.3. Respiratory rate is 24. Intake & Output: Intake & Output 01/06/17 01/07/17 01/07/17 21:59 05:59 13:59 Intake Total 320 / 320 1050 / 1050 200 / 200 Output Total 1300 / 1300 900 / 900 Balance -980 / -980 150 / 150 200 / 200 Weight 185 lb 9.6 oz Intake: IV 100 / 100 1050 / 1050 Dextrose 5% in Water 1, 1000 / 1000 000 ml @ 150 mls/hr IV . Q6H40M [facility] Rx#:[id number] Zosyn 2.25 gm In Dextrose 100 / 100 50 / 50 5% in Water 50 ml @ 100 mls/hr IV Q6H [facility] Rx#: [id number] Oral 220 / 220 200 / 200 Output: Urine Catheter Amount 1300 / 1300 900 / 900 Other: Meal Dinner Breakfast Percent of Meal Consumed 50% 100% Feeding Ability Total Assistance On exam, he is awake and alert, and still minimally verbal. Neck is supple without obvious lymphadenopathy or JVD. Cardiac exam shows regular rate and rhythm. Lungs are clear to auscultation. Abdomen is soft and nontender. Ankles are still a bit puffy. The petechial rash continues to fade. Neurologic: The patient is more alert, and has better motor skills today. He is a little more verbal than yesterday as well. Medical - PN: Obj Da - Labs CBC & Chem 7: 01/07/17 04:05 01/07/17 04:05 Labs: Abnormal Lab Results 01/07/17 01/07/17 01/06/17 04:05 04:05 04:30 WBC 14.3 H RBC 3.48 L Hgb 10.9 L Hct 33.3 L RDW 16.5 H MPV 11.8 H Gran % 80.0 H Lymph % (Auto) 11.5 L Gran # 11.4 H Lymph # (Auto) Eos # (Auto) Sodium 148 H 155 H Chloride 115 H 124 H Carbon Dioxide 21 L BUN 28 H 48 H Creatinine 1.3 H 1.9 H Glucose 145 H 338 H Uric Acid 2.1 L 2.3 L Calcium 8.1 L 7.7 L Phosphorus 2.6 L 2.6 L Magnesium GGT 149 H 140 H Lactate Dehydrogenase 338 H 282 H Total Protein 5.6 L Albumin 2.5 L 2.4 L Albumin/Globulin Ratio 0.7 L 0.8 L Triglycerides 166 H 223 H 01/06/17 01/05/17 01/05/17 04:30 03:38 03:38 WBC 14.9 H 18.1 H RBC 3.39 L 3.78 L Hgb 10.4 L 11.5 L Hct 32.1 L 36.0 L RDW 16.2 H 16.3 H MPV 11.2 H 11.0 H Gran % 81.0 H 83.9 H Lymph % (Auto) 10.0 L 6.8 L Gran # 12.0 H 15.2 H Lymph # (Auto) 1.2 L Eos # (Auto) 0.8 H 0.9 H Sodium 159 H Chloride 125 H Carbon Dioxide 21 L BUN 81 H Creatinine 2.3 H Glucose 233 H Uric Acid Calcium 8.0 L Phosphorus Magnesium 2.7 H GGT 150 H Lactate Dehydrogenase Total Protein Albumin 2.5 L Albumin/Globulin Ratio 0.7 L Triglycerides 227 H 01/04/17 18:01 WBC RBC Hgb Hct RDW MPV Gran % Lymph % (Auto) Gran # Lymph # (Auto) Eos # (Auto) Sodium 157 H Chloride 122 H Carbon Dioxide 20 L BUN 90 H Creatinine 2.4 H Glucose 359 H Uric Acid Calcium 8.2 L Phosphorus Magnesium GGT Lactate Dehydrogenase Total Protein Albumin Albumin/Globulin Ratio Triglycerides January 06: Chest x-ray: Minor bibasilar airspace disease is progressing, atelectasis versus infiltrate. January 05: Chest x-ray: Shows a small infiltrate in the right infrahilar region, which appears new. Pulmonary vessels are mildly distended. There are also small bilateral pleural effusions. Blood cultures are negative so far Urine culture is now growing enterococcus, but only 10-20,000 colonies. Enterococcus is pansensitive. MRSA screen is negative January 04: CBC differential: Absolute neutrophil count is elevated at 19,000, monocyte count high at 1100. RDW is elevated at 16 next Lactic acid elevated at 5.2 Pro-calcitonin elevated at 3.43 urinalysis shows 30 mg of protein, 5 ketones, 2.0 bilirubin 25 leukocyte esterase, 8 white blood cells, 63 hyalin casts, moderate crystals Head CT of the brain: Moderate recurrent hydrocephalus, with possible shunt obstruction. Chronic ischemic changes. 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 Chest x-ray:Shows mild cardiomegaly sternotomy changes. [employer] shunt overlies the right neck. No obvious infiltrates. Meds: Medications Acetaminophen (Tylenol) 650 mg PO Q6HP PRN PRN Reason: PAIN/FEVER > 101 Last Admin: 01/06/17 07:48 Dose: 650 mg Albuterol Sulfate (Ventolin) 2.5 mg NEB Q4HP PRN PRN Reason: Shortness Of Breath Or Wheezing Albuterol/Ipratropium (Duoneb) 3 ml NEB Q6HRT [facility] Last Admin: 01/07/17 07:11 Dose: 3 ml Amlodipine Besylate (Norvasc) 2.5 mg PO DAILY [facility] Last Admin: 01/07/17 08:01 Dose: 2.5 mg Artificial Tears (Artificial Tears Ophth Drops) 1 gtt OU Q8HP PRN PRN Reason: Dry Eye(s) Atorvastatin Calcium (Lipitor) 10 mg PO HS [facility] Last Admin: 01/06/17 21:59 Dose: 10 mg Carbidopa/Levodopa (Sinemet 25/100) 1 tab PO Q8H [facility] Last Admin: 01/07/17 05:31 Dose: 1 tab Clopidogrel Bisulfate (Plavix) 75 mg PO QDAY [facility] Last Admin: 01/07/17 08:01 Dose: 75 mg Dextrose (Dextrose 50%) 0 ml IV UD PRN PRN Reason: Hypoglycemia Diagnostic Test (Pha) (Accu-Chek) 1 each FS ACHS [facility] Last Admin: 01/07/17 07:13 Dose: 1 each Docusate Sodium (Colace) 100 mg PO BID PRN PRN Reason: Constipation Heparin Sodium (Porcine) (Heparin) 5,000 unit SQ Q12 [facility] Last Admin: 01/07/17 08:00 Dose: 5,000 unit Piperacillin Sod/Tazobactam (Sod 2.25 gm/ Dextrose) 50 mls @ 100 mls/hr IV Q6H [facility] Last Admin: 01/07/17 05:31 Dose: 100 mls/hr Dextrose (Dextrose 5% In Water) 1,000 mls @ 150 mls/hr IV .Q6H40M [facility] Last Admin: 01/07/17 03:17 Dose: 150 mls/hr Insulin Glargine (Lantus) 25 unit SQ BID [facility] Last Admin: 01/07/17 07:17 Dose: 25 unit Insulin Human Lispro (Humalog) 0 unit SQ [facility] PRN Reason: Protocol Last Admin: 01/07/17 07:17 Dose: 3 unit Magnesium Hydroxide (Milk Of Magnesia) 30 ml PO DAILYP PRN PRN Reason: Constipation Morphine Sulfate (Morphine) 1 mg IV Q1H PRN PRN Reason: Pain Naloxone HCl (Narcan) 0.1 mg IV Q2MIN PRN PRN Reason: Opiate Reversal Ondansetron HCl (Zofran) 4 mg IV Q4HP PRN PRN Reason: Nausea And Vomiting [facility]) [facility] Last Admin: 01/07/17 07:18 Dose: 40 mg Galantamine Hbr [ (Razadyne Er] 16 Mg) 1 dose PO DAILY [facility] Last Admin: 01/07/17 08:01 Dose: Not Given Prednisone (Prednisone) 5 mg PO [facility] Last Admin: 01/07/17 07:59 Dose: 5 mg Venlafaxine HCl (Effexor Xr) 150 mg PO DAILY [facility] Last Admin: 01/07/17 07:59 Dose: 150 mg Vitamin B Complex (Vitamin B Complex) 1 cap PO DAILY [facility] Last Admin: 01/07/17 07:59 Dose: 1 cap Vitamin D (Vitamin D3) 5,000 unit PO [facility] Last Admin: 01/06/17 22:00 Dose: 5,000 unit Medical - PN: A/P - Time Spent With Patient Total time spent is greater than 50% in coordination of care (as documented) at patient's floor/unit and/or counseling patient: 25 - 35 minutes (1) Sepsis Status: Acute Current Visit: Yes (2) UTI (urinary tract infection) Status: Acute Current Visit: Yes (3) Dehydration with hypernatremia Status: Acute Current Visit: Yes (4) Acute renal failure (ARF) Status: Acute Current Visit: Yes (5) Parkinson disease Status: Chronic Current Visit: Yes - Narrative A/P Narrative: #1. Infectious disease.sepsis. This patient presents with signs of sepsis, including altered mental status, leukocytosis, acute renal failure, elevated lactic acid and pro-calcitonin, tachycardia tachypnea. Chest x-ray does show basilar infiltrate, and he likely has clinically significant pneumonia. -Continue IV Zosyn, and his leukocytosis is improving with this. .-blood cultures pending. -Urine is growing a few colonies of enterococcus. Pansensitive.. #2.renal. -patient presents with acute renal failure, which looks consistent with severe dehydration. BUN and creatinine are improved today, this is hypernatremia. Hypernatremia and acidosis appear improved. Continue IV fluids. #3. Neurologic. this patient appears to have an exacerbation of his Parkinson's disease. Motor rigidity is much improved, since they have been able to get some of his Parkinson's meds back into him. He also appears to be tolerating a dysphagia diet. -CT scan also suggests worsening of his hydrocephalus, which may indicate a malfunctioning [employer] shunt. If he recovers to some degree, he could be referred back to neurosurgery, to address this. -history of dementia, and possible depression. Resume Effexor when he is able. resume Seroquel as needed, or use IM Haldol if needed. #4.CODE STATUS: DNR. #5. DVT prophylaxis: Subcutaneous heparin. #6. Cardiac. -History of atrial fibrillation. -History of coronary disease. status post 4 vessel bypass. resume Plavix and pravastatin when able to take by mouth. -History of hypertension. 37. Pulmonary. History of COPD. Use albuterol nebs and oxygen, when necessary. add scheduled DuoNeb's. resume prednisone when able. -Reported history of sleep apnea. #8. Endocrine. -Type 2 diabetes. Glucoses are running quite high, due to IV fluids with D5. Accu-Cheks today range from 156-307. Decrease D5W IV fluids. Continue Lantus and Humalog sliding scale. #9. GI. -IV Protonix for history of GERD This visit took approximately 30 minutes today, to examine the patient, review test results, review plan of care at our team meeting ,and again with his family members, and write orders. Medical - PN: Qual - VTE Deep Vein Thrombosis/Pulmonary Embolism Present on Admission: No
[2017-01-07] MEDS: VITAMIN D3 5,000 UNIT CAPSULE PO SCH (21:17)
[2017-01-07] MEDS: ATORVASTATIN 20 MG TABLET PO SCH (21:17)
[2017-01-08] MEDS: PIPERACILLIN SODIUM/TAZOBACTAM 2.25 GM in DEXTROSE 5% IN WATER 50 ML IV SCH ×5 (00:42→23:36)
[2017-01-08] MEDS: IPRATROPIUM/ALBUTEROL 3 ML AMPUL.NEB NEB SCH ×4 (00:45→19:57)
[2017-01-08] MEDS: DEXTROSE 5% IN WATER 1,000 ML IV SCH ×3 (02:50→23:36)
[2017-01-08] MEDS: CARBIDOPA/LEVODOPA 25/100 TABLET PO SCH ×3 (04:58→21:43)
[2017-01-08 05:32] LABS: Basophils # (Auto) 0 K/mcL (0.0-0.3); Basophils % (Auto) 0.1 % (0.0-2.0); Eosinophils # (Auto) 0.7 K/mcL (0.0-0.7); Eosinophils % (Auto) 4.4 % (0.0-7.0); Granulocytes % (Auto) 77.3 % (38.0-78.0); Lymphocytes % (Auto) 13.1 % (15.5-49.0); Mean Cell Volume 94.8 fL (80.0-100.0); Mean Corpuscular HGB Conc 32.7 g/dL (31.0-36.0); Monocytes # (Auto) 0.8 K/mcL (0.1-0.9); Monocytes % (Auto) 5.1 % (1.0-12.0); Platelet Count 179 K/mcL (140-440); RBC 3.58 M/mcL (4.50-5.90); Red Cell Distribution Width 15.8 % (11.5-14.5)
[2017-01-08 06:31] LABS: ALT/SGPT 13 U/l (0-40); Albumin 2.5 gm/dL (3.2-5.2); Albumin/Globulin Ratio 0.7 (1.0-2.3); Alkaline Phosphatase 132 U/L (39-117); Bilirubin,Direct < 0.2 mg/dL (0.0-0.3); Blood Urea Nitrogen 18 mg/dl (8-23); Gamma Glutamyl Transpeptidase 189 U/L (8-61); Uric Acid 2.1 mg/dL (2.5-8.0)
[2017-01-08] MEDS: INSULIN LISPRO 1 UNIT/0.01 ML UNIT SQ SCH ×4 (07:28→21:44)
[2017-01-08] MEDS: PANTOPRAZOLE 40 MG VIAL IV SCH (07:32)
[2017-01-08] MEDS: VENLAFAXINE 150 MG CAP.XL.24H PO SCH (08:56)
[2017-01-08] MEDS: HEPARIN 5,000 UNIT/ML VIAL SQ SCH ×2 (08:56→21:43)
[2017-01-08] MEDS: GALANTAMINE HBR 16 MG PO SCH (08:57)
[2017-01-08] MEDS: amLODIPine 5 MG TABLET PO SCH (08:57)
[2017-01-08] MEDS: CLOPIDOGREL 75 MG TABLET PO SCH (08:57)
[2017-01-08] MEDS: INSULIN GLARGINE, HUMAN 1 UNIT/0.01 ML SQ SCH ×2 (08:57→21:43)
[2017-01-08] MEDS: VITAMIN B COMPLEX 1 CAPSULE PO SCH (08:57)
[2017-01-08] MEDS: predniSONE 5 MG TABLET PO SCH (08:57)
[2017-01-08] MEDS ORDERED: VANCOMYCIN PER PHARMACY IV SCH (11:30)
--- NOTE | 2017-01-08 11:31 | Internal Med Progress Note ---
Medical - PN: Subj Patient information: Note initiated : 01/08/17 at 11:31 am Patient: Angel Lal 86 y/o M admitted on 01/04/17 for Possible Aspiration/ Sepsis, UTI, Dehydration. Interval history: January 04, 2017: History of present illness: Mr. Lal is a 86 year old Man brought to the emergency room by his family for declining in level of responsiveness. the patient is awake, but is nonverbal and therefore unable to answer questions. He is able to follow some simple commands, such as leaning forwardor taking a deep breath. the history is mostly supplied by the patient's 3 children, one of whom is his POA. They report that the patient at baseline has dementia and is very forgetful. However he can normally walk and talk, and they often will take him out to lunch where he will order food, and often talk about eventsfrom long ago. His POA went on vacation last week, and when he returned home about 6 days ago, his father had suddenly declined. He noted he was much less responsive and mostly nonverbal. The staff at his nursing hometold him they had sent him to see his doctor, and that the patient was diagnosed with a UTI, which was treated with Macrobid. The staff thought he was getting a little better, though mental status was waxing and waning of it. His family feels that he's had significantly decreased oral intake over the last week. They say at baseline, his memory is very unreliable. However, none of his caregiversfeel that he has had fever or chills. He has not reported headaches, sore throat or cough chest pain or shortness of breath, abdominal pain. To their knowledge, he has not had nausea or vomiting, diarrhea or constipation, or dysuria. eR evaluation today, shows probable sepsis, with markedly leukocytosis, hypernatremia, acute renal failure, elevated lactic acid and pro-calcitonin, as well as his mental status changes. the patient has a DNR CODE STATUS, but his family would like most noninvasive measures attempted to see if he will turn around. They are agreeable to IV antibiotics and fluids, but not to chest compressions or intubation. January 05: Today, the patient seems a little bit more responsive. He is tracking better with his eyes. He seems to be attempting to answer questions, but cannot quite form the words. He still has significant muscle rigidity. He is not able to participate in a history. Speech therapy did evaluate him today, and apparently he was able to swallow some things, so has been started on a dysphagia diet. He had a reasonably good night, and vital signs have been fairly stable. January 06: Today, the patient is more responsive. He apparently is able to swallow soft foods and thickened liquids, with cueing. His family notes he is trying harder to speak, and they have understood a few words. He is certainly more alert today. He was able to say good morning to me, but was unable to really say any intelligible words after that. He is still able to follow simple commands. He is unable to answer other questions. His family is in the room today, and they have lots of questions. January 07: Today, the patient is again improved over yesterday. He is able to speak a little bit, and states that he feels "okay" today. He is using his hands and arms more, and is holding a cup of juice when I enter the room. He still requires quite a bit of assistance to eat. Otherwise, he appears to deny any pain, chest pain or shortness of breath, stomach symptoms. -Sodium is much improved today, as is BUN and creatinine. Leukocytosis also continues to improve. January 08: Patient continues to be a little more alert every day. The nurses note he was awake half the night, so was quite sleepy this morning, however when I entered the room I was able to wake him up. He did take a morning, and said he was not having any pain. He then became mostly nonverbal again. And then fell back asleep. Nurses note they were able to get him to swallow his medications this morning, but he did not seem very interested in breakfast. Otherwise, it was difficult to get him to really respond to questions about chest pain or shortness of breath, etc. He was able to follow certain commands , such as sitting forward and deep breathing. -Sodium and renal function continues to improve. White blood cell count was a little bit higher today, with absolute neutrophil count going from 11,400-11,800. - Constitutional Vitals: Vital Signs Temp Pulse Resp BP Pulse Ox 99.5 F H 68 20 123/50 93 01/08/17 08:00 01/08/17 10:37 01/08/17 08:00 01/08/17 08:00 01/08/17 08:00 Period Temp Pulse Resp BP Sys/Mckeon Pulse Ox Last 24 Hr 98.1 F-99.5 F 68-86 18-28 123-134/47-52 93-99 Intake and Output 01/07/17 01/08/17 01/08/17 21:59 05:59 13:59 Intake Total 1150 / 1150 2100 / 2100 Output Total 850 / 850 1200 / 1200 Balance 300 / 300 900 / 900 Weight 194 lb 12.8 oz Intake & Output: Intake & Output 01/07/17 01/08/17 01/08/17 21:59 05:59 13:59 Intake Total 1150 / 1150 2100 / 2100 Output Total 850 / 850 1200 / 1200 Balance 300 / 300 900 / 900 Weight 194 lb 12.8 oz Intake: IV 1050 / 1050 2100 / 2100 Dextrose 5% in Water 1, 1000 / 1000 000 ml @ 150 mls/hr IV . Q6H40M ANDREW Rx#:[id number] Zosyn 2.25 gm In Dextrose 50 / 50 50 / 50 5% in Water 50 ml @ 100 mls/hr IV Q6H ANDREW Rx#: [id number] Oral 100 / 100 Output: Urine Catheter Amount 850 / 850 1200 / 1200 Other: Meal Lunch Percent of Meal Consumed 100% Feeding Ability Total Assistance # Bowel Movements 1 On exam, he still seems a bit groggy. He is not talking much, but is definitely improved over admission. He is certainly moving his arms and legs better than at admission. Neck is supple without obvious lymphadenopathy or JVD. Cardiac exam shows regular rate and rhythm. Lungs have fairly decreased breath sounds throughout, but no definite rales, rhonchi, wheezes. Abdomen is soft and nontender. Extremities show no edema. Neurologic: Is about the same as yesterday. He is awake, and is able to follow some commands and speak a few words. He does still have some psychomotor retardation. He does have underlying dementia, so it is not clear yet if he is back to baseline, but probably is not. Medical - PN: Obj Da - Labs CBC & Chem 7: 01/08/17 04:12 01/08/17 04:12 Labs: Abnormal Lab Results 01/08/17 01/08/17 01/07/17 04:12 04:12 04:05 WBC 15.2 H RBC 3.58 L Hgb 11.1 L Hct 34.0 L RDW 15.8 H MPV 11.3 H Gran % Lymph % (Auto) 13.1 L Gran # 11.8 H Eos # (Auto) Sodium 146 H 148 H Chloride 110 H 115 H Carbon Dioxide BUN 28 H Creatinine 1.3 H 1.3 H Glucose 136 H 145 H Uric Acid 2.1 L 2.1 L Calcium 8.1 L Phosphorus 2.6 L GGT 189 H 149 H Alkaline Phosphatase 132 H Lactate Dehydrogenase 289 H 338 H Total Protein Albumin 2.5 L 2.5 L Globulin 3.8 H Albumin/Globulin Ratio 0.7 L 0.7 L Triglycerides 166 H 01/07/17 01/06/17 01/06/17 04:05 04:30 04:30 WBC 14.3 H 14.9 H RBC 3.48 L 3.39 L Hgb 10.9 L 10.4 L Hct 33.3 L 32.1 L RDW 16.5 H 16.2 H MPV 11.8 H 11.2 H Gran % 80.0 H 81.0 H Lymph % (Auto) 11.5 L 10.0 L Gran # 11.4 H 12.0 H Eos # (Auto) 0.8 H Sodium 155 H Chloride 124 H Carbon Dioxide 21 L BUN 48 H Creatinine 1.9 H Glucose 338 H Uric Acid 2.3 L Calcium 7.7 L Phosphorus 2.6 L GGT 140 H Alkaline Phosphatase Lactate Dehydrogenase 282 H Total Protein 5.6 L Albumin 2.4 L Globulin Albumin/Globulin Ratio 0.8 L Triglycerides 223 H January 06: Chest x-ray: Minor bibasilar airspace disease is progressing, atelectasis versus infiltrate. January 05: Chest x-ray: Shows a small infiltrate in the right infrahilar region, which appears new. Pulmonary vessels are mildly distended. There are also small bilateral pleural effusions. Blood cultures are negative so far Urine culture is now growing enterococcus, but only 10-20,000 colonies. Enterococcus is pansensitive. MRSA screen is negative January 04: CBC differential: Absolute neutrophil count is elevated at 19,000, monocyte count high at 1100. RDW is elevated at 16 next Lactic acid elevated at 5.2 Pro-calcitonin elevated at 3.43 urinalysis shows 30 mg of protein, 5 ketones, 2.0 bilirubin 25 leukocyte esterase, 8 white blood cells, 63 hyalin casts, moderate crystals Head CT of the brain: Moderate recurrent hydrocephalus, with possible shunt obstruction. Chronic ischemic changes. 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 Chest x-ray:Shows mild cardiomegaly sternotomy changes. NURSERY TEACHER shunt overlies the right neck. No obvious infiltrates. Meds: Medications Acetaminophen (Tylenol) 650 mg PO Q6HP PRN PRN Reason: PAIN/FEVER > 101 Last Admin: 01/06/17 07:48 Dose: 650 mg Albuterol Sulfate (Ventolin) 2.5 mg NEB Q4HP PRN PRN Reason: Shortness Of Breath Or Wheezing Albuterol/Ipratropium (Duoneb) 3 ml NEB Q6HRT [facility] Last Admin: 01/08/17 07:21 Dose: 3 ml Amlodipine Besylate (Norvasc) 2.5 mg PO DAILY [facility] Last Admin: 01/08/17 08:57 Dose: 2.5 mg Artificial Tears (Artificial Tears Ophth Drops) 1 gtt OU Q8HP PRN PRN Reason: Dry Eye(s) Atorvastatin Calcium (Lipitor) 10 mg PO HS [facility] Last Admin: 01/07/17 21:17 Dose: 10 mg Carbidopa/Levodopa (Sinemet 25/100) 1 tab PO Q8H [facility] Last Admin: 01/08/17 04:58 Dose: 1 tab Clopidogrel Bisulfate (Plavix) 75 mg PO QDAY [facility] Last Admin: 01/08/17 08:57 Dose: 75 mg Dextrose (Dextrose 50%) 0 ml IV UD PRN PRN Reason: Hypoglycemia Diagnostic Test (Pha) (Accu-Chek) 1 each FS ACHS [facility] Last Admin: 01/08/17 07:28 Dose: 1 each Docusate Sodium (Colace) 100 mg PO BID PRN PRN Reason: Constipation Heparin Sodium (Porcine) (Heparin) 5,000 unit SQ Q12 [facility] Last Admin: 01/08/17 08:56 Dose: 5,000 unit Piperacillin Sod/Tazobactam (Sod 2.25 gm/ Dextrose) 50 mls @ 100 mls/hr IV Q6H [facility] Last Admin: 01/08/17 05:21 Dose: 100 mls/hr Dextrose (Dextrose 5% In Water) 1,000 mls @ 80 mls/hr IV .[id number] [facility] Last Admin: 01/08/17 02:50 Dose: 80 mls/hr Insulin Glargine (Lantus) 25 unit SQ BID [facility] Last Admin: 01/08/17 08:57 Dose: 25 unit Insulin Human Lispro (Humalog) 0 unit SQ ACHS [facility] PRN Reason: Protocol Last Admin: 01/08/17 07:28 Dose: Not Given Magnesium Hydroxide (Milk Of Magnesia) 30 ml PO DAILYP PRN PRN Reason: Constipation Morphine Sulfate (Morphine) 1 mg IV Q1H PRN PRN Reason: Pain Last Admin: 01/07/17 21:15 Dose: 1 mg Naloxone HCl (Narcan) 0.1 mg IV Q2MIN PRN PRN Reason: Opiate Reversal Ondansetron HCl (Zofran) 4 mg IV Q4HP PRN PRN Reason: Nausea And Vomiting Pantoprazole S[facility] ([facility]ix) [facility] Last Admin: 01/08/17 07:32 Dose: 40 mg Galantamine Hbr [ (Razadyne Er] 16 Mg) 1 dose PO DAILY [facility] Last Admin: 01/08/17 08:57 Dose: Not Given Prednisone (Prednisone) 5 mg PO [facility] Last Admin: 01/08/17 08:57 Dose: 5 mg Venlafaxine HCl (Effexor Xr) 150 mg PO DAILY [facility] Last Admin: 01/08/17 08:56 Dose: 150 mg Vitamin B Complex (Vitamin B Complex) 1 cap PO DAILY [facility] Last Admin: 01/08/17 08:57 Dose: 1 cap Vitamin D (Vitamin D3) 5,000 unit PO [facility] Last Admin: 01/07/17 21:17 Dose: 5,000 unit Medical - PN: A/P - Time Spent With Patient Total time spent is greater than 50% in coordination of care (as documented) at patient's floor/unit and/or counseling patient: 25 - 35 minutes (1) Sepsis Status: Acute Current Visit: Yes (2) UTI (urinary tract infection) Status: Acute Current Visit: Yes (3) Dehydration with hypernatremia Status: Acute Current Visit: Yes (4) Acute renal failure (ARF) Status: Acute Current Visit: Yes (5) Parkinson disease Status: Chronic Current Visit: Yes - Narrative A/P Narrative: #1. Infectious disease.sepsis. This patient presents with signs of sepsis, including altered mental status, leukocytosis, acute renal failure, elevated lactic acid and pro-calcitonin, tachycardia tachypnea. Chest x-ray does show basilar infiltrate, and he likely has clinically significant pneumonia. -Continue IV Zosyn, and his leukocytosis is improving with this. White blood cell count did bump a little today, and patient is not quite as perky as expected, so I will add vancomycin just to be sure we are not missing an underlying healthcare associated pneumonia. .-blood cultures pending. -Urine is growing a few colonies of enterococcus. Pansensitive.. #2.renal. -patient presents with acute renal failure, which looks consistent with severe dehydration. BUN and creatinine are improved today, this is hypernatremia. Hypernatremia and acidosis improved. Continue IV fluids. #3. Neurologic. this patient appears to have an exacerbation of his Parkinson's disease. Motor rigidity is much improved, since they have been able to get some of his Parkinson's meds back into him. He also appears to be tolerating a dysphagia diet. -CT scan also suggests worsening of his hydrocephalus, which may indicate a malfunctioning NURSERY TEACHER shunt. If he recovers to some degree, he could be referred back to neurosurgery, to address this. -history of dementia, and possible depression. Resume Effexor when he is able. resume Seroquel as needed, or use IM Haldol if needed. #4.CODE STATUS: DNR. #5. DVT prophylaxis: Subcutaneous heparin. #6. Cardiac. -History of atrial fibrillation. -History of coronary disease. status post 4 vessel bypass. resume Plavix and pravastatin when able to take by mouth. -History of hypertension. 37. Pulmonary. History of COPD. Use albuterol nebs and oxygen, when necessary. add scheduled DuoNeb's. resume prednisone when able. -Reported history of sleep apnea. #8. Endocrine. -Type 2 diabetes. Glucoses are running quite high, due to IV fluids with D5. Accu-Cheks today range from 114-151. Decrease D5W IV fluids. Continue Lantus and Humalog sliding scale. #9. GI. -IV Protonix for history of GERD This visit took approximately 30 minutes today, to examine the patient, review test results, review plan of care at our team meeting ,and again with his family members, and write orders. Medical - PN: Qual - VTE Deep Vein Thrombosis/Pulmonary Embolism Present on Admission: No
[2017-01-08] MEDS ORDERED: VANCOMYCIN 1,500 MG in 0.9 % SODIUM CHLORIDE 500 ML IV SCH (13:00)
[2017-01-08] MEDS: ATORVASTATIN 20 MG TABLET PO SCH (21:42)
[2017-01-08] MEDS: VITAMIN D3 5,000 UNIT CAPSULE PO SCH (21:43)
[2017-01-09] MEDS: IPRATROPIUM/ALBUTEROL 3 ML AMPUL.NEB NEB SCH ×2 (00:41→07:11)
[2017-01-09] MEDS: CARBIDOPA/LEVODOPA 25/100 TABLET PO SCH (05:46)
[2017-01-09] MEDS: PIPERACILLIN SODIUM/TAZOBACTAM 2.25 GM in DEXTROSE 5% IN WATER 50 ML IV SCH (06:40)
[2017-01-09 06:43] LABS: Basophils # (Auto) 0 K/mcL (0.0-0.3); Basophils % (Auto) 0.1 % (0.0-2.0); Eosinophils # (Auto) 0.6 K/mcL (0.0-0.7); Eosinophils % (Auto) 4.4 % (0.0-7.0); Lymphocytes # (Auto) 1.6 K/mcL (1.5-4.8); Lymphocytes % (Auto) 12.2 % (15.5-49.0); Mean Cell Volume 93.4 fL (80.0-100.0); Mean Corpuscular HGB Conc 32.6 g/dL (31.0-36.0); Mean Corpuscular Hemoglobin 30.5 pg (26.0-34.0); Monocytes # (Auto) 0.7 K/mcL (0.1-0.9); Monocytes % (Auto) 5.3 % (1.0-12.0); Platelet Count 137 K/mcL (140-440); RBC 3.66 M/mcL (4.50-5.90); Red Cell Distribution Width 15.8 % (11.5-14.5)
[2017-01-09] MEDS: PANTOPRAZOLE 40 MG VIAL IV SCH (07:23)
[2017-01-09] MEDS: INSULIN LISPRO 1 UNIT/0.01 ML UNIT SQ SCH (07:29)
[2017-01-09] MEDS: amLODIPine 5 MG TABLET PO SCH (10:04)
[2017-01-09] MEDS: predniSONE 5 MG TABLET PO SCH (10:04)
[2017-01-09] MEDS: VITAMIN B COMPLEX 1 CAPSULE PO SCH (10:04)
[2017-01-09] MEDS: HEPARIN 5,000 UNIT/ML VIAL SQ SCH (10:04)
[2017-01-09] MEDS: CLOPIDOGREL 75 MG TABLET PO SCH (10:04)
[2017-01-09] MEDS: VENLAFAXINE 150 MG CAP.XL.24H PO SCH (10:04)
[2017-01-09] MEDS: GALANTAMINE HBR 16 MG PO SCH (10:09)
[2017-01-09] MEDS: INSULIN GLARGINE, HUMAN 1 UNIT/0.01 ML SQ SCH (10:16)
--- NOTE | 2017-01-09 10:22 | Discharge Summary ---
Medical - DS: Prov Patient information: Note initiated : 01/09/17 at 10:14 am Service Date, if different from initiated Date: [] Patient: Angel Lal 86 y/o M admitted on 01/04/17 for Possible Aspiration/ Sepsis, UTI, Dehydration. Chief Complaint: [] Date of admission: 01/04/17 13:12 Discharge date: 01/09/17 Primary care physician: Shar Rosas Admitting clinician: Shanique Aguirre Attending physician on discharge: Shanique Aguirre Medical - DS: Meds - Discharge Medications Prescriptions: Piperacillin Sodium/Tazobactam [Zosyn] 2.25 gm IV Q6H #20 vial Vancomycin 1,500 mg IV Q24H #5 vial Active and Home Medications: Discharge medications: Zosyn 2.25 g IV every 6 hours, 5 more days vancomycin 1500 mg IV daily, 5 more days Duo nebs 4 times daily Tylenol as needed Albuterol 2.5 mg nebulizers every 4 hours as needed Norvasc 2.5 mg daily Artificial tears 1 drop OU every 8 hours as needed Change Lipitor back to pravastatin 40 mg nightly Sinemet 25/100 one tab p.o. every 8 hours Plavix 75 mg daily Colace 100 mg twice daily as needed Galantamine 16 mg daily Heparin 5000 units subcu every 12 hours until more ambulatory Lantus I would start with 20 units subcu daily, and monitor Accu-Cheks Humalog sliding scale, medium, before meals and at bedtime Milk of magnesia 30 cc p.o. daily Protonix 40 mg p.o. daily Prednisone 5 mg every morning Effexor XR 150 mg p.o. daily Vitamin B complex one daily Vitamin D 5000 units nightly Prior home Medications Pravastatin [Pravachol] 40 mg PO HS 03/16/15 [History Confirmed 01/05/17 Last Taken Unknown] wheelchair - lightweight, manual #1 each 03/21/15 [Rx Confirmed 01/28/16 Last Taken Unknown] cholecalciferol (vitamin D3) 5,000 unit capsule 5,000 unit PO HS cap 06/10/15 [ History Confirmed 01/05/17 Last Taken Unknown] carbidopa 25 mg-levodopa 100 mg tablet 1 tab PO Q8H #90 tab 11/01/15 [Rx Confirmed 01/05/17 Last Taken 01/04/17 06:00] clopidogrel 75 mg tablet 75 mg PO QDAY #30 tab 11/01/15 [Rx Confirmed 01/05/17 Last Taken 01/04/17 08:00] fenofibrate 54 mg tablet 54 mg PO QDAY #30 tab 11/01/15 [Rx Confirmed 01/05/17 Last Taken Unknown] galantamine ER 16 mg 24 hr capsule,extended release 16 mg PO DAILY #30 cap 10/31 [Rx Confirmed 01/05/17 Last Taken 01/04/17 08:00] insulin glargine 100 unit/mL (3 mL) subcutaneous pen 20 unit SUB-Q DAILY #15 ml 11/01/15 [Rx Confirmed 01/05/17 Last Taken 01/04/17 09:00] pantoprazole 40 mg tablet,delayed release 40 mg PO QDAY #30 tab 11/01/15 [Rx Confirmed 01/05/17 Last Taken 01/04/17 08:00] prednisone 5 mg tablet 5 mg PO QAM #30 tab 11/01/15 [Rx Confirmed 01/05/17 Last Taken 01/04/17 08:00] blood sugar diagnostic strips See Dose Instructions .ROUTE .MEDSUPPLY #100 each 11/05/15 [Rx Confirmed 01/28/16 Last Taken Unknown] acetaminophen 325 mg tablet 325 mg PO Q4H PRN tab 01/28/16 [History Confirmed 01/05/17 Last Taken Unknown] ketoconazole 2 % topical cream 1 applic TOPICAL BID PRN #60 g 01/28/16 [Rx Confirmed 01/05/17 Last Taken Unknown] multivitamin with minerals capsule 1 tab-cap PO QDAY cap 01/28/16 [History Confirmed 01/05/17 Last Taken 01/04/17 08:00] BD Pen needle 31G x 09/24 #150 each 09/15/16 [Rx Last Taken Unknown] insulin aspart 100 unit/mL subcutaneous solution See Label Instructions SUB-Q .COMPLEX #15 ml 10/20/16 [Rx Confirmed 01/05/17 Last Taken 01/04/17 07:00] tiotropium bromide 18 mcg capsule with inhalation device 18 mcg INHALATION .COMPLEX #30 puff 11/03/16 [Rx Confirmed 01/05/17 Last Taken 01/04/17 09:00] Allopurinol [Zylopriim] 300 mg PO BID 01/05/17 [History Confirmed 01/05/17 Last Taken 01/04/17 08:00] Dextran 70/Hypromellose [Artificial Tears] 1 each OP Q8 PRN 01/05/17 [History Confirmed 01/05/17 Last Taken Unknown] Nitrofurantoin Monohyd/M-Cryst [Macrobid 100 mg Capsule] 1 cap PO BID 01/05/17 [ History Confirmed 01/05/17 Last Taken 01/04/17 08:00] QUEtiapine [SEROquel] 25 mg PO Q6 PRN 01/05/17 [History Confirmed 01/05/17 Last Taken Unknown] Vitamin B Complex/Folic Acid [Sm Vitamin B Complex Tablet] 0.4 mg PO DAILY 01/05 [History Confirmed 01/05/17 Last Taken 01/04/17 08:00] amLODIPine [Norvasc] 2.5 mg PO DAILY 01/05/17 [History Confirmed 01/05/17 Last Taken 01/04/17 08:00] venlafaxine ER 150 mg tablet,extended release 24 hr 150 mg PO DAILY #30 tab [Rx Last Taken Unknown] Medical - DS: Hosp Hospital course: Mr. Lal is a 86 year old M january 04, 2017: History of present illness: Mr. Lal is a 86 year old Man brought to the emergency room by his family for declining in level of responsiveness. the patient is awake, but is nonverbal and therefore unable to answer questions. He is able to follow some simple commands, such as leaning forwardor taking a deep breath. the history is mostly supplied by the patient's 3 children, one of whom is his POA. They report that the patient at baseline has dementia and is very forgetful. However he can normally walk and talk, and they often will take him out to lunch where he will order food, and often talk about eventsfrom long ago. His POA went on vacation last week, and when he returned home about 6 days ago, his father had suddenly declined. He noted he was much less responsive and mostly nonverbal. The staff at his nursing hometold him they had sent him to see his doctor, and that the patient was diagnosed with a UTI, which was treated with Macrobid. The staff thought he was getting a little better, though mental status was waxing and waning of it. His family feels that he's had significantly decreased oral intake over the last week. They say at baseline, his memory is very unreliable. However, none of his caregiversfeel that he has had fever or chills. He has not reported headaches, sore throat or cough chest pain or shortness of breath, abdominal pain. To their knowledge, he has not had nausea or vomiting, diarrhea or constipation, or dysuria. eR evaluation today, shows probable sepsis, with markedly leukocytosis, hypernatremia, acute renal failure, elevated lactic acid and pro-calcitonin, as well as his mental status changes. the patient has a DNR CODE STATUS, but his family would like most noninvasive measures attempted to see if he will turn around. They are agreeable to IV antibiotics and fluids, but not to chest compressions or intubation. January 05: Today, the patient seems a little bit more responsive. He is tracking better with his eyes. He seems to be attempting to answer questions, but cannot quite form the words. He still has significant muscle rigidity. He is not able to participate in a history. Speech therapy did evaluate him today, and apparently he was able to swallow some things, so has been started on a dysphagia diet. He had a reasonably good night, and vital signs have been fairly stable. January 06: Today, the patient is more responsive. He apparently is able to swallow soft foods and thickened liquids, with cueing. His family notes he is trying harder to speak, and they have understood a few words. He is certainly more alert today. He was able to say good morning to me, but was unable to really say any intelligible words after that. He is still able to follow simple commands. He is unable to answer other questions. His family is in the room today, and they have lots of questions. January 07: Today, the patient is again improved over yesterday. He is able to speak a little bit, and states that he feels "okay" today. He is using his hands and arms more, and is holding a cup of juice when I enter the room. He still requires quite a bit of assistance to eat. Otherwise, he appears to deny any pain, chest pain or shortness of breath, stomach symptoms. -Sodium is much improved today, as is BUN and creatinine. Leukocytosis also continues to improve. January 08: Patient continues to be a little more alert every day. The nurses note he was awake half the night, so was quite sleepy this morning, however when I entered the room I was able to wake him up. He did take a morning, and said he was not having any pain. He then became mostly nonverbal again. And then fell back asleep. Nurses note they were able to get him to swallow his medications this morning, but he did not seem very interested in breakfast. Otherwise, it was difficult to get him to really respond to questions about chest pain or shortness of breath, etc. He was able to follow certain commands , such as sitting forward and deep breathing. -Sodium and renal function continues to improve. White blood cell count was a little bit higher today, with absolute neutrophil count going from 11,400-11,800. January 09: Hospital course: -this gentleman was admitted with sepsis, severe hypernatremia, and likely pneumonia. He was treated with IV Zosyn, and aggressive management for hypernatremia with D5 IV fluids. His sodium slowly came down over several days. On presentation, he was mute and could barely move. Over the last couple of days, he is starting to become a little bit verbal, and now that he is able to take his Parkinson's medications again, has improved psychomotor retardation. He still requires help with all ADLs. He is able to swallow safely, on a dysphasia diet, with cueing for every meal. -Hypernatremia has resolved. He will need encouragement to maintain adequate oral hydration. -Mental status is not quite back to normal. At baseline, the patient was very forgetful, but could walk, and could go out to lunch with his family, and order off the menu. He is not ambulatory yet, at this point. He will need ongoing aggressive rehab. -Pneumonia seem to respond to Zosyn, but over the last couple of days white blood cell count has bumped a little. Vancomycin was added to be sure we had good staph coverage. Leukocytosis is again improving. -Blood glucoses ran very high while he was on the D5 IV fluids. He was given increased doses of insulin. Now that he is off IV fluids, he should be able to go back to his home regimen of Lantus plus NovoLog sliding scale. Today, he is awake, but tends to stare straightforward a lot. He is able to say good morning, and is able to say no when asked about pain. Otherwise he is minimally verbal. He is not really able to give a reliable review of systems. On exam, he still seems a bit groggy. He is not talking much, but is definitely improved over admission. He is certainly moving his arms and legs better than at admission. Neck is supple without obvious lymphadenopathy or JVD. Cardiac exam shows regular rate and rhythm. Lungs have fairly decreased breath sounds throughout, but no definite rales, rhonchi, wheezes. Abdomen is soft and nontender. Extremities show no edema. Neurologic: Is about the same as yesterday. He is awake, and is able to follow some commands and speak a few words. He does still have some psychomotor retardation. He does have underlying dementia, so it is not clear yet if he is back to baseline, but probably is not. Assessment and plan: #1. Infectious disease.sepsis. This patient presents with signs of sepsis, including altered mental status, leukocytosis, acute renal failure, elevated lactic acid and pro-calcitonin, tachycardia tachypnea. Chest x-ray does show basilar infiltrate, and he likely has clinically significant pneumonia. -Sepsis has resolved. I am not sure that his pneumonia is resolved. I would continue Zosyn for another 5 days, to complete a 10 day course. I would continue vancomycin for the same amount of time. Please recheck a CBC in the next day or 2, just to be sure it is stable. .-blood cultures pending. -Urine is growing a few colonies of enterococcus. Pansensitive.. #2.renal. -patient presents with acute renal failure, which looks consistent with severe dehydration. BUN and creatinine are improved today, and he is probably back to baseline. Hypernatremia and acidosis improved. IV fluids discontinued.. #3. Neurologic. this patient appears to have an exacerbation of his Parkinson's disease. Motor rigidity is much improved, since they have been able to get some of his Parkinson's meds back into him. He also appears to be tolerating a dysphagia diet. -CT scan also suggests worsening of his hydrocephalus, which may indicate a malfunctioning BRAND STRATEGIST shunt. If he recovers to some degree, he could be referred back to neurosurgery, to address this. -history of dementia, and possible depression. Resume Effexor when he is able. resume Seroquel as needed, I do not think he has been requiring this here. Ink. He will need aggressive physical therapy, occupational therapy, speech therapy, to move him back towards his baseline. #4.CODE STATUS: DNR. #5. DVT prophylaxis: Subcutaneous heparin. #6. Cardiac. -History of atrial fibrillation. -History of coronary disease. status post 4 vessel bypass. resume Plavix and pravastatin when able to take by mouth. -History of hypertension. 37. Pulmonary. History of COPD. Use albuterol nebs and oxygen, when necessary. -He is currently on duo nebs 4 times daily, and would continue with that for now. I do not think he is physically able to manage an inhaler at this time. -Low-dose prednisone was resumed. -Reported history of sleep apnea. #8. Endocrine. -Type 2 diabetes. Glucoses are running quite high, due to IV fluids with D5. D5W IV fluids are discontinued. I would resume home regimen of Lantus plus Humalog sliding scale. His can be adjusted as needed. #9. GI. -IV Protonix for history of GERD This visit took approximately 35 minutes, to interview and examine the patient, review plan of care, and write discharge orders and prescriptions. Discharge diagnosis: Sepsis. Pneumonia. Severe hypernatremia. Dehydration. Secondary discharge diagnosis: Parkinson's disease. Dementia Type 2 diabetes Hypertension - Time Spent with Patient Total time spent providing and/or coordinating discharge services: Medical - DS: Exam - Constitutional Vitals: Vital Signs Temp Pulse Pulse Resp BP BP Pulse Ox 01/09/17 07:33 98.4 F 70 18 129/69 94 01/09/17 07:11 66 24 H 94 01/09/17 03:58 98.8 F 74 20 137/55 94 01/09/17 00:00 98.8 F 68 20 107/48 94 01/08/17 20:00 97.9 F 63 20 120/70 100 01/08/17 19:58 71 22 01/08/17 16:00 98.2 F 65 22 120/70 98 01/08/17 13:41 72 20 01/08/17 12:00 98.6 F 68 18 130/58 96 01/08/17 10:37 68 Intake and Output 01/08/17 01/09/17 01/09/17 21:59 05:59 13:59 Intake Total 1100 / 1100 790 / 790 1000 / 1000 Output Total 1250 / 1250 1375 / 1375 Balance -150 / -150 -585 / -585 1000 / 1000 Intake: IV 1050 / 1050 550 / 550 1000 / 1000 Dextrose 5% in Water 1, 1000 / 1000 1000 / 1000 000 ml @ 80 mls/hr IV . [id number] ANDREW Rx#:[id number] Zosyn 2.25 gm In Dextrose 50 / 50 50 / 50 5% in Water 50 ml @ 100 mls/hr IV Q6H ANDREW Rx#: [id number] Vancomycin 1,500 mg In 500 / 500 Sodium Chloride 0.9% 500 ml @ 333.3 mls/hr IV Q24H ANDREW Rx#:[id number] Oral 50 / 50 240 / 240 Output: Urine Catheter Amount 1250 / 1250 1375 / 1375 Other: Meal Lunch Percent of Meal Consumed 50% Feeding Ability Total Assistance # Bowel Movements 1 Weight 195 lb 4.8 oz Medical - DS: Data Labs on day of discharge: Labs from last 24 hours 01/09/17 04:14 WBC 13.4 H RBC 3.66 L Hgb 11.1 L Hct 34.1 L MCV 93.4 MCH 30.5 MCHC 32.6 RDW 15.8 H Plt Count 137 L MPV 11.7 H Gran % 78.0 Lymph % (Auto) 12.2 L [place] % (Auto) 5.3 Eos % (Auto) 4.4 Baso % (Auto) 0.1 Gran # 10.5 H Lymph # (Auto) 1.6 [place] # (Auto) 0.7 Eos # (Auto) 0.6 Baso # (Auto) 0 January 08: Chemistry panel: Sodium 146, potassium 3.8, chloride 110, CO2 22, anion gap 14, BUN 18, creatinine 1.3, glucose 136, uric acid 2.1, GGT 189, alkaline phosphatase 132, LDH 289, albumin 2.5 January 06: Chest x-ray: Minor bibasilar airspace disease is progressing, atelectasis versus infiltrate. January 05: Chest x-ray: Shows a small infiltrate in the right infrahilar region, which appears new. Pulmonary vessels are mildly distended. There are also small bilateral pleural effusions. Blood cultures are negative so far Urine culture is now growing enterococcus, but only 10-20,000 colonies. Enterococcus is pansensitive. MRSA screen is negative January 04: CBC differential: Absolute neutrophil count is elevated at 19,000, monocyte count high at 1100. RDW is elevated at 16 next Lactic acid elevated at 5.2 Pro-calcitonin elevated at 3.43 urinalysis shows 30 mg of protein, 5 ketones, 2.0 bilirubin 25 leukocyte esterase, 8 white blood cells, 63 hyalin casts, moderate crystals Head CT of the brain: Moderate recurrent hydrocephalus, with possible shunt obstruction. Chronic ischemic changes. 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 Chest x-ray:Shows mild cardiomegaly sternotomy changes. 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 No obvious infiltrates. Medical - DS: A/P - Patient/Caregiver Discharge Instructions Activity: as per physical therapy Diet: Consistent Carbohydrate Prescriptions: Piperacillin Sodium/Tazobactam [Zosyn] 2.25 gm IV Q6H #20 vial Vancomycin 1,500 mg IV Q24H #5 vial Other Amb Orders: Aspiration Precautions Location: Determined By Patient Fall Risk Location: Determined By Patient OT Discharge Order Location: Determined By Patient Physical Therapy at Discharge - General Location: Determined By Patient ST Discharge Order Location: Determined By Patient Wound Care/Dressings Location: Determined By Patient Basic Metabolic Panel Time Frame: 2 Days, Location: Determined By Patient Complete Blood Count Time Frame: 2 Days, Location: Determined By Patient - Problem Maintenance (1) Sepsis Status: Acute (2) UTI (urinary tract infection) Status: Acute (3) Dehydration with hypernatremia Status: Acute (4) Acute renal failure (ARF) Status: Acute (5) Parkinson disease Status: Chronic - Follow up Plan Follow up with: Shar Rosas MD [Primary Care Provider] - Disposition: [facility] Prognosis: Fair Rehab Potential: Fair Overall status at discharge: patient is progressing back to baseline Medical - DS: Qual - VTE Deep Vein Thrombosis/Pulmonary Embolism Present on Admission: No
[2017-01-09] MEDS ORDERED: 0.9 % SODIUM CHLORIDE 10 ML SYRINGE IV SCH (14:00)
== END 2017-01-09 11:10 | DRG 871 ==
LOC: ED 09:59 → ICU 13:12
PROVIDERS: ADMIT Internal Medicine; ATTEND Internal Medicine